=== PATIENT | male | born 1955 | race Caucasian/White ===

== ENCOUNTER 2016-10-11 05:11 | Emergency (ER) | payer OTHER ==
--- NOTE | ~2016-10-11 | ER ---
PATIENT'S NAME: KATELIN GRIGSBY [facility] AGE: 60 Y [address] ROOM: [place] [address] LOCATION: ED ADMIT DATE: 10/11/2016 ER/Outpatient Report DISCHARGE DATE: 10/11/2016 FAMILY PHYSICIAN: Gage García MD ATTENDING PHYSICIAN: Lisa Hart Time of arrival: 0511 hours. Time of my evaluation: 0600 hours. The patient was initially seen by nurse practitioner, Alannah Berman at 0545 hours. CHIEF COMPLAINT: He has pain in his right flank and hips. HISTORY OF PRESENT ILLNESS: The patient is a 60-year-old male, who presents to the emergency department today with a chief complaint of pain in his right hip and back. He reports this started about 2 days prior to arrival on Monday after working. He denies any trauma or fall. 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 He denies any fevers or chills. No nausea or vomiting. No diarrhea or constipation. Denies any headache. He is having some increased urinary frequency. Denies any loss of bowel or bladder. No saddle anesthesias. He did report to the nurse practitioner some numbness and tingling in his legs. He reports no numbness and tingling for me. PAST MEDICAL HISTORY: 1. Hypertension. 2. Dyslipidemia. 3. BPH. PAST SURGICAL HISTORY: 1. Hernia repair. 2. Gallbladder surgery. 3. Kel fundoplication. 4. Varicocelectomy. SOCIAL HISTORY: The patient denies any tobacco, alcohol, or illicit drug use. ALLERGIES: NO KNOWN DRUG ALLERGIES. MEDICATIONS: Please see list. PATIENT'S NAME: KATELIN GRIGSBY [facility] AGE: 60 Y [address] ROOM: [place] [address] LOCATION: ED ADMIT DATE: 10/11/2016 ER/Outpatient Report DISCHARGE DATE: 10/11/2016 FAMILY PHYSICIAN: Gage García MD ATTENDING PHYSICIAN: Lisa Hart REVIEW OF SYSTEMS: All systems are reviewed by myself and negative with the exception of those discussed in HPI and past medical history. PHYSICAL EXAMINATION: VITAL SIGNS: Weight 76 kg. Blood pressure 154/92, pulse 88, respiratory rate 16, temperature 97.7, oxygen saturation 98% on room air. GENERAL: The patient is a 60-year-old male, who appears stated age. He does have a flat affect, in no acute distress. HEENT: Normocephalic and atraumatic. Pupils are equal, round, and reactive to light. Mucous membranes moist. NECK: Supple. There is no nuchal rigidity. CARDIOVASCULAR: Regular rate and rhythm. No murmurs, rubs, or gallops. LUNGS: Clear to auscultation bilaterally. No wheezes, rales, or rhonchi. ABDOMEN: Soft, nontender, and nondistended. No rebound, rigidity, or guarding. MUSCULOSKELETAL: The patient does have some tenderness to palpation. Left paraspinal musculature on the right. NEUROLOGICAL: GCS of 15. He does have 3/4 reflexes at patella bilaterally, 2/4 Achilles. SKIN: Warm and dry. LABORATORY DATA AND X-RAYS: Urinalysis shows 25 blood, rare epithelials, many bacteria. CBC is unremarkable. Lactate is normal. CMP is unremarkable. LFTs are normal. CRP is less than 0.29. Pro orly is less than 0.05. ESR is normal. CT scan of the abdomen and pelvis is obtained. I have discussed results with the radiologist. CT of the head is negative. CT scan of the lumbar spine shows advanced chronic degenerative changes with some foraminal stenosis. There is a CT scan of the abdomen and pelvis. There is no evidence of stone. There is a large amount of stool. IMPRESSION: 1. Lumbar radiculopathy. 2. Advanced chronic degenerative changes with foraminal stenosis. 3. Large stool. 4. Initial visit. EMERGENCY DEPARTMENT COURSE: The patient brought back to the examination room. Seen and evaluated by myself. IV is established. Laboratory analysis and imaging are obtained as described above. The patient is given 25 mcg of fentanyl. He is given 30 mg of Toradol IV. He is given 1 g of Tylenol p.o. He is also given 60 mg of prednisone p.o. I have discussed results with the patient. I have contacted PATIENT'S NAME: KATELIN GRIGSBY [facility] AGE: 60 Y [address] ROOM: [place] [address] LOCATION: [facility] ADMIT DATE: 10/11/2016 ER/Outpatient Report DISCHARGE DATE: 10/11/2016 FAMILY PHYSICIAN: Gage García MD ATTENDING PHYSICIAN: Lisa Hart Dr., the patient's primary care doctor. He does report that he will see and evaluate the patient today as well for consideration for physical therapy. I have discussed return to care instructions including worsening symptoms or any other concerns, return to the emergency department as soon as possible. The patient is agreeable without further questions at this time. DISPOSITION: The patient is discharged home in good condition. DO ANGIE CASTANEDA/modl /[id number] d: 10/11/16 1213 t: 10/12/16 0844, OUTPATIENT REPORT
[~2016-10-11 05:11] MED LIST: FINASTERIDE5 MG PO; HYGROTON25 MG PO; LIPITOR40 MG PO; NORVASC10 MG PO; TOPROL XL25 MG PO; ZESTRIL30 MG PO
[2016-10-11 06:43] LABS: BASOPHIL # 0.1 K/uL (0.0-0.2); BASOPHIL % 0.9 %; EOSINOPHIL # 0.2 K/uL (0.0-0.5); EOSINOPHIL % 1.8 %; HEMATOCRIT 43.1 % (37.0-53.0); IMMATURE GRANULOCYTE % 0.2 %; LYMPHOCYTE # 1.8 K/uL (0.8-4.0); LYMPHOCYTE % 19.3 %; MCH 31.6 pg (27.0-34.0); MCHC 34.8 gm/dL (32.0-36.5); MCV 90.9 fl (83.0-98.0); MONOCYTE # 0.9 K/uL (0.0-1.0); MONOCYTE % 9.5 %; MPV 10.7 fl (9.4-12.4); NEUTROPHIL # (ANC) 6.3 K/uL (1.4-9.0); NEUTROPHIL % 68.3 %; NRBC % 0 /100WBC (0-0.00); PLATELET COUNT 223 K/uL (150-450); RBC 4.74 M/uL (3.50-5.50); WBC 9.1 K/uL (4.0-11.0)
[2016-10-11 07:05] LABS: BILIRUBIN URINE NEGATIVE (NEGATIVE); BLOOD URINE 25 /UL (NEGATIVE); GLUCOSE URINE NEGATIVE (NEGATIVE); KETONE URINE NEGATIVE (NEGATIVE); LEUKOCYTES URINE NEGATIVE /UL (NEGATIVE); NITRITE URINE NEGATIVE (NEGATIVE); PROTEIN URINE NEGATIVE (NEGATIVE); UROBILINOGEN URINE NORMAL (NORMAL)
[2016-10-11 07:07] LABS: COLOR URINE YELLOW (YELLOW); TURBIDITY URINE CLEAR (CLEAR)
[2016-10-11 07:11] LABS: ALBUMIN 4.4 gm/dL (3.5-5.0); ALK PHOS 75 IU/L (33-138); ALT 21 IU/L (12-78); ANION GAP 13.7 (10.0-19.0); AST 18 IU/L (10-40); BLOOD UREA NITROGEN 17 mg/dL (6-24); CHLORIDE 109 mMol/L (96-110); CO2 22 mMol/L (22-32); ESTIMATED GFR (MDRD EQUATION) > 60; POTASSIUM 3.7 mMol/L (3.7-5.1); SODIUM 141 mMol/L (135-145); TOTAL BILIRUBIN 0.8 mg/dL (0.0-1.5); TOTAL PROTEIN 7.2 g/dL (6.0-8.4)
[2016-10-11 07:13] LABS: WBC URINE NEGATIVE #/HPF (NEGATIVE)
[2016-10-11 07:14] LABS: BACTERIA URINE RARE (NEGATIVE); EPITHELIAL URINE RARE #/HPF (NEGATIVE)
== END 2016-10-11 08:40 | disposition disaster alternative care site (69) ==
LOC: GMED 05:11
PROVIDERS: Emergency Medicine
DX: M48.07 Spinal stenosis, lumbosacral region (principal); M47.897 Other spondylosis, lumbosacral region; I10 Essential (primary) hypertension; E78.5 Hyperlipidemia, unspecified; N40.0 Benign prostatic hyperplasia without lower urinary tract symptoms; Z98.890 Other specified postprocedural states; Z79.82 Long term (current) use of aspirin; Z79.899 Other long term (current) drug therapy; R19.5 Other fecal abnormalities
CPT/HCPCS: J1885; J3010; J7512

== ENCOUNTER 2016-10-26 05:22 | Emergency (ER) | payer OTHER ==
--- NOTE | ~2016-10-26 | ER ---
PATIENT'S NAME: KATELIN GRIGSBY [facility] AGE: 61 Y [address] ROOM: [place] [address] LOCATION: [facility] ADMIT DATE: 10/26/2016 ER/Outpatient Report DISCHARGE DATE: FAMILY PHYSICIAN: Gage García MD ATTENDING PHYSICIAN: Dayanna Kumar HISTORY OF PRESENT ILLNESS: A 61-year-old male, who presents today by ambulance for frequent falls, increased weakness in the lower extremities. He says it is really from like his mid calf down to his ankles that he is weak. He felt weak and his legs sort of buckled and he fell. Denies any other injuries. No headache, no neck pain, no chest pain, no shortness of breath. No nausea or vomiting. No urinary symptoms. No bladder or bowel symptoms. The patient states that he has had some back pain in the past and he has some left-sided back pain at this time that is mild and then the pain shooting down the back of his calves toward his ankles. He reports his pain is a 5/10, but he does not want anything for pain at this time. He was here on October 12, 2016, for something similar, it was like a near-syncopal episode, where he had pretty thorough workup done including CT head, CT of abdomen and pelvis, CT of the lumbar spine, thought it was a pinched nerve and had sent him out on some prednisone and follow up with his primary. The patient denies any slurred speech. No aphasia, no other neuro findings. He says that he has had this problem before and he has had problems with buckling lower extremities since March 2016. He says that when he walks, he has a shuffling gait because he cannot lift his feet off the ground because they are weak. PAST MEDICAL HISTORY: Hypertension and prostate disease. SURGICAL HISTORY: Hernia repair, cholecystectomy, and right index finger. SOCIAL HISTORY: He does not smoke, drink, or use any drugs. He does work here in [employer] at [employer]. MEDICATIONS: Please see med list. ALLERGIES: NONE. REVIEW OF SYSTEMS: Reviewed by me and negative with the exception of those discussed in the HPI. PATIENT'S NAME: KATELIN GRIGSBY [facility] AGE: 61 Y [address] ROOM: [place] [id number] LOCATION: [facility] ADMIT DATE: 10/26/2016 ER/Outpatient Report DISCHARGE DATE: FAMILY PHYSICIAN: Gage García MD ATTENDING PHYSICIAN: Dayanna Kumar PHYSICAL EXAMINATION: VITAL SIGNS: He is 5 feet 7 inches, he weighs 78.1 kg, his heart rate is 82, respiratory rate 18, saturations are 100% on room air. GENERAL: The patient is in no acute distress, alert and interactive. Speaking in full sentences. He does not appear toxic. Alert and oriented x4. HEENT: Pupils are equal and reactive to light. HEART: Heart rate is regular rate and rhythm. No chest wall tenderness. LUNGS: Lung sounds are clear. ABDOMEN: Soft, nontender, nondistended. EXTREMITIES: He does not have any pedal edema. He moves all extremities. He does not have tenderness in bilateral calves. Negative Homans sign. SKIN: Warm, dry, and intact. NEURO: He has no pronator drift. Strength of the upper extremities is 5/5. Intact sensation in bilateral upper extremities. On the lower extremities, he is able to hold both of his legs up against gravity. He has no drift over 10 seconds, but diminished strength against resistance as well. He is able to dorsiflex and plantarflex without any difficulty, though intact bilateral pedal pulses. The cranial nerves 2-12 are otherwise intact. No slurred speech. No aphasia. NIH stroke scale at this time is 0. EMERGENCY ROOM COURSE: We will check some lab work. Then, it was signed out at change of shift to Dr. Hart, pending labs and reassessment. DAYANNA KUMAR MD CAW/modl /[id number] d: 10/26/16646 t: 10/28/161954, OUTPATIENT REPORT
--- NOTE | ~2016-10-26 | ER ---
PATIENT'S NAME: KATELIN GRIGSBY [facility] AGE: 61 Y [address] ROOM: [place] [address] LOCATION: [facility] ADMIT DATE: 10/26/2016 ER/Outpatient Report DISCHARGE DATE: 10/26/2016 FAMILY PHYSICIAN: Gage García MD ATTENDING PHYSICIAN: Tayler Lowe HISTORY OF PRESENT ILLNESS: Katelin Grigsby is a 61-year-old male who presented to Dr. Lowe. Please refer to her dictation. At 6:00 a.m., I assumed care at shift change. The patient was brought in by ambulance with weakness of his lower extremities. He has been seen with back pain and shooting pain down his right leg. Right now, the back pain is better, but today he has had some feeling like his legs are going to "go out from under him." The patient has no problems with bowel or bladder. He has no numbness. PAST MEDICAL HISTORY: Reviewed. ALLERGIES: HE HAS NO ALLERGIES TO MEDICATIONS. CURRENT MEDICATIONS: His medications include: 1. Finasteride. 2. Lisinopril. 3. Amlodipine. 4. Metoprolol. 5. Atorvastatin. 6. Melatonin. 7. Aspirin. 8. Hydralazine. MEDICAL PROBLEMS: 1. BPH. 2. Hypertension. 3. Dyslipidemia. PAST SURGICAL HISTORY: Prior Surgeries: 1. Hernia repair. 2. Cholecystectomy. 3. Kel fundoplication. 4. Right index finger. 5. Varicocelectomy. PATIENT'S NAME: KATELIN GRIGSBY [facility] AGE: 61 Y [address] ROOM: [place] [address] LOCATION: [facility] ADMIT DATE: 10/26/2016 ER/Outpatient Report DISCHARGE DATE: 10/26/2016 FAMILY PHYSICIAN: Gage García MD ATTENDING PHYSICIAN: Tayler Lowe SOCIAL HISTORY: The patient works here at the [employer] in [employer]. He is . Tobacco use; none. Alcohol use; none. Drug use; denies. FAMILY HISTORY: Positive for coronary artery disease. No family history of any neurological diseases. REVIEW OF SYSTEMS: All systems reviewed and negative other than what is noted in the HPI. The patient did follow up with Dr. García from his visit here to the ER on October 11. He followed up in the clinic on October 17 and actually has an appointment tomorrow. He is going to physical therapy three times a week for his back pain which he does think is helping. The patient has increased frequency of urination. PHYSICAL EXAMINATION: VITAL SIGNS: Height 5 feet 7 inches, weight 78.1 kg. Pulse 82, sats 100%, respiratory rate is 18, and blood pressure is 120/72. GENERAL: A 61-year-old male in no acute distress. HEENT: Head; normocephalic and atraumatic. Eyes; pupils equal and reactive to light and accommodation. Extraocular movements intact. LUNGS: Clear to auscultation. HEART: Regular rate and rhythm. ABDOMEN: Soft. SKIN: [place], warm, and dry. NEUROLOGIC: The patient is alert and oriented x4. Cranial nerves 2 through 12 grossly intact. Motor strength is 5/5 throughout. Sensation is intact to light touch. The patient when he walks does have a shuffling gait. He also has some cogwheel rigidity of his upper extremities. LABORATORY DATA AND IMAGING STUDIES: CBC is normal. Sedimentation rate is 10. Procalcitonin is less than 0.05. UA is negative. Renal panel is unremarkable. Glucose 101. Cardiac enzymes are negative. CRP is less than 0.29. Lactate 1.1. IMPRESSION AND PLAN: Weakness. His physical exam does show some shuffling gait, a little bit of cogwheel rigidity. Parkinson disease is in the differential diagnosis. The patient is comfortable going home. He will remain off work today. His will remain off work today and tomorrow. Caution with movements, up with assistance, use a walker if available, and to keep appointment with Dr. García tomorrow. Follow up sooner if any problems, and I advised that he see Neurology and given Dr. Tobar's information to call [facility] specialist and follow up with Neurology. The patient understands and agrees, PATIENT'S NAME: KATELIN GRIGSBY [facility] AGE: 61 Y [address] ROOM: [place], [place] [address] LOCATION: [facility] ADMIT DATE: 10/26/2016 ER/Outpatient Report DISCHARGE DATE: 10/26/2016 FAMILY PHYSICIAN: Gage García MD ATTENDING PHYSICIAN: Tayler Lowe and is comfortable with this plan of care, and all questions have been answered. MD LAUREN ANN/yakelin /[id number] d: 10/26/16 1515 t: 11/01/16 1003, OUTPATIENT REPORT
[~2016-10-26 05:22] MED LIST changes: -ALEVE PM CAPLE1 EACH PO; -ALEVE220 MG PO; -APRESOLINE25 MG PO; -ARICEPT10 MG PO; -ASPIRIN325 MG PO; -BAYER BACK & B1 EACH PO; -BAYER CHILD81 MG PO; -COLACE100 MG PO; -LIDOCAINE1 EACH TOP; -LIORESAL10 MG PO; -MYLANTA (MAG-AL30 ML PO; -NORCO 5-325 TA1 EACH PO; -NUPLAZID17 MG PO; -TYLENOL EXTRA500 MG PO
[2016-10-26 06:09] LABS: BILIRUBIN URINE NEGATIVE (NEGATIVE); BLOOD URINE NEGATIVE /UL (NEGATIVE); GLUCOSE URINE NEGATIVE (NEGATIVE); KETONE URINE NEGATIVE (NEGATIVE); LEUKOCYTES URINE NEGATIVE /UL (NEGATIVE); NITRITE URINE NEGATIVE (NEGATIVE); PROTEIN URINE NEGATIVE (NEGATIVE); UROBILINOGEN URINE NORMAL (NORMAL)
[2016-10-26 06:14] LABS: BASOPHIL % 0.2 %; EOSINOPHIL # 0.2 K/uL (0.0-0.5); EOSINOPHIL % 1.8 %; HEMATOCRIT 41.8 % (37.0-53.0); HEMOGLOBIN 14.2 g/dL (11.0-16.0); IMMATURE GRANULOCYTE # 0.1 K/uL (0.0-0.3); IMMATURE GRANULOCYTE % 0.6 %; LYMPHOCYTE # 1.7 K/uL (0.8-4.0); LYMPHOCYTE % 17.1 %; MCH 31.6 pg (27.0-34.0); MCV 93.1 fl (83.0-98.0); MONOCYTE # 1.1 K/uL (0.0-1.0); MONOCYTE % 10.9 %; NEUTROPHIL # (ANC) 6.8 K/uL (1.4-9.0); NEUTROPHIL % 69.4 %; NRBC % 0 /100WBC (0-0.00); PLATELET COUNT 213 K/uL (150-450); RBC 4.49 M/uL (3.50-5.50); RDW-CV 12.3 % (11.9-14.6); WBC 9.8 K/uL (4.0-11.0)
[2016-10-26 06:25] LABS: COLOR URINE YELLOW (YELLOW); TURBIDITY URINE CLEAR (CLEAR)
[2016-10-26 06:43] LABS: ALBUMIN 3.8 gm/dL (3.5-5.0); ANION GAP 9.9 (10.0-19.0); BLOOD UREA NITROGEN 18 mg/dL (6-24); CALCIUM 8.7 mg/dL (8.5-10.5); CHLORIDE 109 mMol/L (96-110); CO2 28 mMol/L (22-32); CPK 65 IU/L (35-332); ESTIMATED GFR (MDRD EQUATION) > 60; PHOSPHORUS 2.8 mg/dL (2.5-4.9); POTASSIUM 3.9 mMol/L (3.7-5.1); SODIUM 143 mMol/L (135-145)
== END 2016-10-26 08:05 | disposition disaster alternative care site (69) ==
LOC: GACC 05:22
PROVIDERS: Family Medicine
DX: R53.1 Weakness (principal); R26.9 Unspecified abnormalities of gait and mobility; I10 Essential (primary) hypertension; E78.5 Hyperlipidemia, unspecified; N40.0 Benign prostatic hyperplasia without lower urinary tract symptoms; Z90.49 Acquired absence of other specified parts of digestive tract; Z79.82 Long term (current) use of aspirin; Z98.890 Other specified postprocedural states; Z79.899 Other long term (current) drug therapy; W19.XXXA Unspecified fall, initial encounter

== ENCOUNTER → 2016-10-26 | Outpatient (CLI) | payer OTHER ==
[~2016-10-26] MED LIST changes: +ALEVE PM CAPLE1 EACH PO; +ALEVE220 MG PO; +APRESOLINE25 MG PO; +ARICEPT10 MG PO; +ASPIRIN325 MG PO; +BAYER BACK & B1 EACH PO; +BAYER CHILD81 MG PO; +COLACE100 MG PO; +LIDOCAINE1 EACH TOP; +LIORESAL10 MG PO; +MYLANTA (MAG-AL30 ML PO; +NORCO 5-325 TA1 EACH PO; +NUPLAZID17 MG PO; +TYLENOL EXTRA500 MG PO
== END | disposition disaster alternative care site (69) ==
LOC: GAMB 05:50
DX: M79.604 Pain in right leg (principal); M79.605 Pain in left leg; I10 Essential (primary) hypertension; E78.5 Hyperlipidemia, unspecified; M54.9 Dorsalgia, unspecified; R53.1 Weakness; Z79.891 Long term (current) use of opiate analgesic; Z79.899 Other long term (current) drug therapy
CPT/HCPCS: A0425; A0429

== ENCOUNTER 2016-10-30 08:55 | Emergency (ER) | payer OTHER ==
--- NOTE | ~2016-10-30 | ER ---
PATIENT'S NAME: KATELIN GRIGSBY [facility] AGE: 61 Y [address] ROOM: [place] [address] LOCATION: ED ADMIT DATE: 10/30/2016 ER/Outpatient Report DISCHARGE DATE: 10/30/2016 FAMILY PHYSICIAN: Gage García MD ATTENDING PHYSICIAN: Mehdi Medrano TIME OF ARRIVAL: 0855 hours. TIME OF EVALUATION: 0908 hours. CHIEF COMPLAINT: Back pain. HISTORY OF PRESENT ILLNESS: The patient is a 61-year-old male who presents to the emergency department today with chief complaint of back pain. The patient does have a history of back pain. He was seen by myself a few weeks ago. He had undergone CT imaging at that time which did reveal multiple disc bulges on the left. The patient does report pain in the left lower back region. He reports this got worse about an hour prior. He reports he has had some urinary frequency for about 2 days. No blood in his urine. No blood in the stool. No dark tarry stools. No fevers or chills. No nausea or vomiting. The patient has episodes where the pain gets severe and he has to fall down to his knees. He does report it is sharp. It is worse with movement. Currently, moderate in severity. The patient's did give the patient 3 hydrocodone 5/325 about 2 hours prior. He does report he is starting to feel better. He denies any fall. No trauma. No twisting. He has been undergoing physical therapy on Monday, Monday, and Monday for the past couple of weeks, not have helped. He is awaiting to be seen by Dr. Tobar, Neurology. PAST MEDICAL HISTORY: Hypertension, dyslipidemia, and BPH. PAST SURGICAL HISTORY: Hernia, gallbladder, Kel fundoplication, and varicocelectomy. SOCIAL HISTORY: The patient denies any tobacco, alcohol, or illicit drug use. ALLERGIES: NO KNOWN DRUG ALLERGIES. MEDICATIONS: PATIENT'S NAME: KATELIN GRIGSBY [facility] AGE: 61 Y [address] ROOM: [place] [address] LOCATION: ED ADMIT DATE: 10/30/2016 ER/Outpatient Report DISCHARGE DATE: 10/30/2016 FAMILY PHYSICIAN: Gage García MD ATTENDING PHYSICIAN: Mehdi Medrano Please see list. PRIMARY CARE DOCTOR: Gage García MD. REVIEW OF SYSTEMS: All systems are reviewed by myself and negative with the exception of those discussed in the HPI and past medical history. PHYSICAL EXAMINATION: VITAL SIGNS: Weight 170 pounds, blood pressure 151/82, pulse 82, respiratory rate 16, temperature 97.5, and oxygen saturation 95% on room air. GENERAL: The patient is a 61-year-old male, who appears stated age. He does have a flat affect, in no acute distress. HEENT: Normocephalic atraumatic. Pupils are equal, round, and reactive to light. Extraocular motions are intact. Mucous membranes are moist. NECK: Supple. There is no nuchal rigidity. CARDIOVASCULAR: Regular rate and rhythm. No murmurs, rubs, or gallops. LUNGS: Clear to auscultation bilaterally. No wheezes, rales, or rhonchi. ABDOMEN: Soft, nontender, and nondistended. No rebound, rigidity, or guarding. MUSCULOSKELETAL: The patient has tenderness to palpation, left paraspinal musculature. NEUROLOGICAL: GCS 15, 3/4 reflexes bilateral patella, 2/4 on the Achilles. The patient does note multiple extended beats of clonus at the ankle. He has downward going toes bilaterally. He does have sort of a cogwheel type rigidity noted in his left upper extremity. SKIN: Warm and dry. LABORATORY DATA AND X-RAYS: CBC is unremarkable. CMP is normal. LFTs are normal. Urinalysis is unremarkable. CT scans are reviewed. CT scan of the abdomen and pelvis was unremarkable and there was no evidence of nephrolithiasis [address] scan of the C-spine and lumbar spine was reviewed, L1-L2 had mild disc bulge, L2-L3 had moderate disc disease with diffuse disc bulge, and moderate facet ligamentous hypertrophy. There is mild central canal stenosis, moderate right and mild left foraminal stenosis, L3 and L4 had diffuse disc bulge and mild facet ligamentous hypertrophy, mild central canal stenosis, moderate bilateral foraminal stenosis L4-L5 with chronic advanced degeneration of the disc with disc height loss and disc bulging slightly, symmetric to the left, moderate facet hypertrophy, and lateral recess effacement bilaterally, moderate left and right foraminal stenosis, the left L4 nerve is contacted by disc osteophyte in the far lateral region. L5-S1 shows chronic advanced degenerative disc with high loss and broad disc bulge, moderate for bilateral foraminal stenosis. The passing S1 nerve left and right are contacted by disc PATIENT'S NAME: KATELIN GRIGSBY [facility] AGE: 61 Y [address] ROOM: [place] [address] LOCATION: [facility] ADMIT DATE: 10/30/2016 ER/Outpatient Report DISCHARGE DATE: 10/30/2016 FAMILY PHYSICIAN: Gage García MD ATTENDING PHYSICIAN: Mehdi Medrano bulge in particular in the left where S1 could be compressed. IMPRESSION: 1. Lumbar back pain with multiple areas of disc bulge and degenerative disc disease. 2. Initial visit. EMERGENCY DEPARTMENT COURSE: The patient was brought back to the examination room. Seen and evaluated by myself. Laboratory analysis and imaging are obtained. They were reviewed by myself. The patient has just taken 3 hydrocodone 5/325. He is feeling improved pain at this time. He feels very comfortable. I have discussed results with the patient's . I have discussed with the patient that the patient certainly may need an MRI for further evaluation. In regard to the patient's cogwheel-type rigidity and multiple beat clonus, I see no evidence of requiring emergent workup at this time as the patient does have an excellent overall clinical appearance. I have discussed following up closely with both, Dr. Tobar and Dr. García for further evaluation, treatment, and management. I have discussed return to care instructions including worsening symptoms or other concerns to return to the emergency department as soon as possible. The patient is agreeable, the patient's is agreeable without further questions. At time of disposition, the patient discharged home in good condition. DO ANGIE CASTANEDA/yahirl /[id number] d: 10/30/16 1526 t: 11/09/16 0641, OUTPATIENT REPORT
[2016-10-30 09:28] LABS: BILIRUBIN URINE NEGATIVE (NEGATIVE); BLOOD URINE 25 /UL (NEGATIVE); COLOR URINE STRAW (YELLOW); GLUCOSE URINE NEGATIVE (NEGATIVE); KETONE URINE NEGATIVE (NEGATIVE); LEUKOCYTES URINE NEGATIVE /UL (NEGATIVE); NITRITE URINE NEGATIVE (NEGATIVE); PROTEIN URINE NEGATIVE (NEGATIVE); SPEC GRAVITY URINE 1.005 (1.003-1.035); TURBIDITY URINE CLEAR (CLEAR); UROBILINOGEN URINE NORMAL (NORMAL)
[2016-10-30 09:37] LABS: BACTERIA URINE NEGATIVE (NEGATIVE); EPITHELIAL URINE RARE #/HPF (NEGATIVE); RBC URINE NEGATIVE #/HPF (NEGATIVE); WBC URINE NEGATIVE #/HPF (NEGATIVE)
[2016-10-30 09:40] LABS: BASOPHIL # 0.1 K/uL (0.0-0.2); BASOPHIL % 0.7 %; EOSINOPHIL # 0.1 K/uL (0.0-0.5); EOSINOPHIL % 1.1 %; HEMOGLOBIN 14.4 g/dL (11.0-16.0); IMMATURE GRANULOCYTE % 0.4 %; LYMPHOCYTE # 1.3 K/uL (0.8-4.0); LYMPHOCYTE % 15.2 %; MCH 32.5 pg (27.0-34.0); MCHC 35.1 gm/dL (32.0-36.5); MCV 92.6 fl (83.0-98.0); MONOCYTE # 0.6 K/uL (0.0-1.0); MONOCYTE % 7.6 %; NEUTROPHIL # (ANC) 6.3 K/uL (1.4-9.0); NRBC % 0 /100WBC (0-0.00); PLATELET COUNT 199 K/uL (150-450); RBC 4.43 M/uL (3.50-5.50); RDW-CV 11.9 % (11.9-14.6); WBC 8.4 K/uL (4.0-11.0)
[2016-10-30 09:56] LABS: ALBUMIN 4.1 gm/dL (3.5-5.0); ALK PHOS 79 IU/L (33-138); ALT 31 IU/L (12-78); ANION GAP 11.7 (10.0-19.0); AST 19 IU/L (10-40); BLOOD UREA NITROGEN 11 mg/dL (6-24); CALCIUM 8.7 mg/dL (8.5-10.5); CHLORIDE 108 mMol/L (96-110); CO2 24 mMol/L (22-32); ESTIMATED GFR (MDRD EQUATION) > 60; POTASSIUM 3.7 mMol/L (3.7-5.1); SODIUM 140 mMol/L (135-145); TOTAL BILIRUBIN 1.1 mg/dL (0.0-1.5); TOTAL PROTEIN 6.9 g/dL (6.0-8.4)
== END 2016-10-30 11:07 | disposition disaster alternative care site (69) ==
LOC: GMED 08:55
PROVIDERS: Emergency Medicine
DX: M51.37 Other intervertebral disc degeneration, lumbosacral region (principal); I10 Essential (primary) hypertension; E78.5 Hyperlipidemia, unspecified; N40.0 Benign prostatic hyperplasia without lower urinary tract symptoms; Z90.79 Acquired absence of other genital organ(s); Z98.890 Other specified postprocedural states

== ENCOUNTER → 2016-11-21 | Outpatient (CLI) | payer OTHER, MEDICAID ==
[~2016-11-21] MED LIST changes: +ALEVE PM CAPLE1 EACH PO; +ALEVE220 MG PO; +APRESOLINE25 MG PO; +ARICEPT10 MG PO; +ASPIRIN325 MG PO; +BAYER BACK & B1 EACH PO; +BAYER CHILD81 MG PO; +COLACE100 MG PO; +LIDOCAINE1 EACH TOP; +LIORESAL10 MG PO; +MYLANTA (MAG-AL30 ML PO; +NORCO 5-325 TA1 EACH PO; +NUPLAZID17 MG PO; +TYLENOL EXTRA500 MG PO
== END ==
LOC: GRAD 10:06
DX: R29.2 Abnormal reflex (principal); R29.6 Repeated falls

== ENCOUNTER → 2016-11-29 | Outpatient (CLI) | payer OTHER, MEDICAID | END | disposition disaster alternative care site (69) | LOC: GRAD 07:23 | DX: R29.2 Abnormal reflex (principal); M47.892 Other spondylosis, cervical region; R29.6 Repeated falls ==

== ENCOUNTER 2016-12-03 03:13 | Inpatient (IN) | payer OTHER, MEDICAID ==
[~2016-12-03] VITALS: Ht 170.2 cm; Wt 76.6 kg
--- NOTE | ~2016-12-03 | CON ---
PATIENT'S NAME: KATELIN GRIGSBY [facility] AGE: 61 Y [address] ROOM: [facility] [place], [place] [address] [place] [facility] [place] DATE: 12/03/2016 Consultation DISCHARGE DATE: FAMILY PHYSICIAN: RANDAL CASTILLO MD ATTENDING PHYSICIAN: CANDACE VALENTINE DATE OF CONSULTATION: 12/04/2016 I was asked to see this patient in Telemedicine consultation. Consultation was performed with the assistance of nurse practitioner, Dori Dickens, on 12/04/2016. 35 minutes spent reviewing the chart with the nurse practitioner repeating britton portions of history and examination. Plan of care was discussed with the patient and family at the bedside. I agree with the discussed assessment and plan of care. Jay Jay Moreau MD Neurology [employer] [facility] JAY JAY MOREAU MD MNZ/modl /[id number] d: t: 12/04/16 1123, CONSULTATION REPORT
--- NOTE | ~2016-12-03 | ER ---
PATIENT'S NAME: KATELIN GRGISBY [facility] AGE: 61 Y [address] ROOM: [facility] [place], [place] [address] LOCATION: [facility] ADMIT DATE: 12/03/2016 ER/Outpatient Report DISCHARGE DATE: FAMILY PHYSICIAN: RANDAL CASTILLO MD ATTENDING PHYSICIAN: CANDACE VALENTINE HISTORY OF PRESENT ILLNESS: Katelin Grigsby is a 61-year-old male. The patient was evaluated by Dr. Claros prior to my arrival at 6:00 a.m. I assumed care at shift change. History was reviewed with the patient and his . I was to follow up on lab work and CT scanning. Chemistry panel was remarkable for a slightly low potassium of 3.6 and an elevated amylase 140, lipase 688. CBC and sedimentation rate are normal. PT and INR normal. Lactate normal. Procalcitonin normal. Urine drug screen negative. UA negative. EKG unremarkable. CT scan of the abdomen and pelvis: Hazy opacity in the mesentery in the mid abdomen with multiple small mesenteric lymph nodes. These findings can reflect mesenteric panniculitis. IMPRESSION: 1. Generalized weakness with recurrent falls. 2. Mesenteric panniculitis. 3. Elevated pancreatic enzymes. 4. Mild hypokalemia. 5. Dementia. 6. Newly diagnosed Parkinson disease. PLAN: A long discussion was done with and Katelin. She is not able to manage him at home. They have apparently started discussions about maybe some placements, but to this date the patient has not wanted to go anywhere, but they do agree that he has needed increasing cares at home. Care Management will be consulted. The patient will be admitted. Observation per Dr. Valentine, hospitalist. LUPE HEIN MD CAR/modl /[id number] d: 12/04/1621 t: 12/04/16 1513, OUTPATIENT REPORT
--- NOTE | ~2016-12-03 | DS ---
PATIENT'S NAME: KATELIN GRIGSBY [facility] AGE: 61 Y [address] ROOM: [address] [place], [place] [address] LOCATION: [facility] [place] ADMIT DATE: 12/03/2016 Discharge Summary DISCHARGE DATE: 12/08/2016 FAMILY PHYSICIAN: Amara Silva MD ATTENDING PHYSICIAN: Joshua Burgess PRINCIPAL DIAGNOSES: 1. Parkinson's disease as diagnosed by Dr. Tobar of Neurology. 2. Falls. 3. Gait instability. 4. Presumed dementia. 5. Essential hypertension. 6. Benign prostatic hypertrophy. HOSPITAL COURSE: Please reference any of the admitting data to the history and physical dictated by Dr. Burgess. A 61-year-old male who has been having a spastic gait with significant instability and falls who was brought into the emergency room, where there was no acute problems, but was admitted to the hospital for further evaluation and management. He was admitted and started on restorative physical and occupational therapy. He was mildly hypokalemic; so, he was given replacement. He was also given IV fluids for a total of liter. The patient had also elevated lipase, which normalized after IV fluid hydration. Neurology consultation was obtained who in review did not see any acute neurologic changes; however, did recommend for further evaluation of Holter monitor at discharge. The patient did not display any heart rate or rhythm changes noted while hospitalized, but did warrant further investigation. Orthostatic blood pressures were negative, concerns for normal- pressure hydrocephalus; however, review of previous imaging with Radiology did not suggest NPH. The patient was evaluated by physiatry with Dr. Pedraza, because of his spastic gait was started on baclofen, and we did see a great improvement in his gait functionality. He still recommended to utilize a walker at all times. We did ask a speech therapy evaluation for his cognition and it did show increased processing of problem solving tasks that were addressed during consultation. The patient was stable however concerns about home safety by himself. Care Management was involved and looked into different options including a prison care, assisted living, adult daycare, and even home health options. Ultimately, we were able to narrow the needs of the patient down to adult daycare with outpatient therapies. The patient's condition is good at discharge and stable. The patient does warrant further outpatient evaluation with Neurology Services for further workup of his Parkinson's and potential for symptoms associated with normal-pressure hydrocephalus. He certainly most warrant a psychiatric evaluation as well. These all have been established for followup as outpatient. DISCHARGE MEDICATIONS: PATIENT'S NAME: KATELIN [facility] AGE: 61 Y [address] ROOM: [address] [place], [place] [address] LOCATION: [facility] [place] ADMIT DATE: 12/03/2016 Discharge Summary DISCHARGE DATE: 12/08/2016 FAMILY PHYSICIAN: Amara Silva MD ATTENDING PHYSICIAN: Joshua Burgess 1. Atorvastatin 40 mg p.o. every night at bedtime. 2. Finasteride 5 mg p.o. everyday. 3. Amlodipine 10 mg p.o. everyday. 4. Lisinopril 30 mg p.o. everyday. 5. Metoprolol 25 mg p.o. everyday. 6. Lidocaine patch 1 topically as needed to affected area daily. 7. Donepezil 5 mg p.o. everyday until 12/09/2016 then increase to 1 full tablet of 10 mg p.o. everyday thereafter. 8. Nuplazid 34 mg p.o. everyday. 9. Aspirin 81 mg p.o. everyday. 10. Baclofen 10 mg p.o. twice daily. 11. Docusate sodium 100 mg p.o. twice daily as needed. PERTINENT LABORATORY FINDINGS: Most recent cardiac enzymes were negative. ABG was negative. A CBC on 12/03/2016 showed a white blood cell count of 8.0, hemoglobin of 13.1, hematocrit of 38.4, and platelet count of 302. Chemistry panel on 12/04/2016 showed a glucose of 103, a BUN of 8, a creatinine of 0.9, sodium of 140, potassium of 3.9, up from 3.6, chloride of 109, CO2 of 22, calcium of 8.4, anion gap of 12.9, a sed rate of 12, and INR of 1, a urinalysis that was negative for bacteria or nitrites, urine drug screen was negative, alcohol was negative. Lipase was mildly elevated at 688 with repeat lab 293, a CRP was less than 0.29, procalcitonin was negative, TSH was negative. RADIOLOGIC IMAGING: X-ray of the pelvis in the ER showed no acute fracture of the pelvis or the hips. A chest x-ray showed no vascular congestion or acute parenchymal infiltrate. CT of the abdomen and pelvis showed hazy opacity in the mesentery in the midabdomen with multiple small mesenteric lymph nodes, scattered colon diverticula, past Kel fundoplication, and surgically absent gallbladder. CONSULTING PROVIDERS: Saadia Dickens APRN and [facility]. DISCHARGE INSTRUCTIONS: The patient will be discharged to home with his spouse. She plans on utilizing adult daycare on a daily basis while she is at work. The patient will require occupational, physical, and speech therapy for further evaluation and treatment of his spastic and unstable gait. Walkers use is recommended at all times when the patient is up with significant fall precautions. He should undergo cognitive rehabilitation with speech therapy as well. The patient will require follow up with his primary care doctor Dr. Silva in [address] Tobar in 1 to 2 weeks when he returns. Holter monitor was placed at discharge and Dr. Silva will follow up with the results. Total time arranging discharge and coordination of discharge care was 30 PATIENT'S NAME: KATELIN [facility] AGE: 61 Y [address] ROOM: [place] [address] LOCATION: [facility] [place] ADMIT DATE: 12/03/2016 Discharge Summary DISCHARGE DATE: 12/08/2016 FAMILY PHYSICIAN: Amara Silva MD ATTENDING PHYSICIAN: Joshua Burgess. Thank you for allowing us to participate in the care of this patient while at [facility]. ALIVIA JACOBSON APRN, APRN FOR MD JASVIR MELCHOR/yakelin /[id number] CC: MD Mendoza Thakkar MD d: t: 12/09/16 0340, DISCHARGE SUMMARY
--- NOTE | ~2016-12-03 | HP ---
PATIENT'S NAME: AKTELIN GRIGSBY [facility] AGE: 61 Y [address] ROOM: [place] [address] LOCATION: [facility] [place] ADMIT DATE: 12/03/2016 History & Physical DISCHARGE DATE: FAMILY PHYSICIAN: RANDAL CASTILLO MD ATTENDING PHYSICIAN: CANDACE VALENTINE DATE OF SERVICE: CHIEF COMPLAINT: Generalized weakness and recurrent falls. HISTORY OF PRESENT ILLNESS: This is a 61-year-old, male, with a history remarkable for Parkinson disease and dementia, followed by Dr. Tobar in the Neurology Clinic. The story is that patient has been suffering recurrent falls at home. Has fallen about 2 times in the last few months and last time he fell was this morning around 2 a.m. when he was walking to the bathroom at home. He felt that his both legs gave out and that he fell and sat down on the ground. He denies any head trauma or syncope. He was so weak that he could not even get up from the ground, so his tried to help him, but his could not lift him up because he was too heavy for her. The patient was on the ground about 15 minutes, and then they called the ambulance, and the patient was brought here for evaluation. The patient has been having this problem at home for a while and has been going on to outpatient physical therapy every Monday, Monday, and Monday. The patient denies any other symptoms. REVIEW OF SYSTEMS: As mentioned in history of present illness. All other systems were reviewed and they were negative except of those mentioned in history of present illness. PAST MEDICAL HISTORY: 1. Coronary artery disease, did not require stent or CABG. 2. Parkinson disease. 3. Dementia. 4. Hypertension. 5. Hyperlipidemia. 6. Benign prostatic hypertrophy. ALLERGIES: NO KNOWN DRUG ALLERGIES ACCORDING TO THE PATIENT. HOME MEDICATIONS: PATIENT'S NAME: KATELIN GRIGSBY [facility] AGE: 61 Y [address] ROOM: [place] [address] LOCATION: [facility] [place] ADMIT DATE: 12/03/2016 History & Physical DISCHARGE DATE: FAMILY PHYSICIAN: RANDAL CASTILLO MD ATTENDING PHYSICIAN: CANDACE VALENTINE Currently has been reconciled. SOCIAL HISTORY: The patient denies any alcohol or illegal drug or cigarette use. FAMILY HISTORY: Father has hypertension. Mother has heart problem requiring CABG at old age. PAST SURGICAL HISTORY: Cholecystectomy and hiatal hernia repair in the past. PHYSICAL EXAMINATION: VITAL SIGNS: At the time of dictation, temperature 98, heart rate 76, blood pressure 130/75, saturation 99% on room air, and respirations 14. GENERAL APPEARANCE: Alert and oriented x3, in no acute distress. HEENT: Pupils are equally round and reactive to light. Extraocular muscles intact. Anicteric sclerae. Nasal turbinates are normal bilaterally. Moist oral mucosa. NECK: No JVD. CARDIOVASCULAR: Regular rate and rhythm. Normal S1, S2. No murmur, no rubs, no gallops. RESPIRATORY: Clear to auscultation. No rales. No rhonchi. No crackles, no wheezing. ABDOMEN: Soft, nontender, and nondistended. Bowel sounds are present and no mass. EXTREMITIES: No edema in upper or lower extremities. NEUROLOGICAL: Grossly nonfocal. Currently, I do not appreciate any muscle weakness in the lower extremities. SKIN: No ulcer, no rash, no cyanosis. LABORATORY DATA: Venous blood gas shows pH of 7.39, pCO2 of 44, bicarbonate 26.6, and lactic acid 0.8. Troponin less than 0.04. ProBNP 32, CPK 108. White blood cells 8, hemoglobin 13.1, hematocrit 38.4, and platelets 302. Glucose 93, BUN 18, and creatinine 1.2. Sodium 142, potassium 3.6, chloride 111, CO2 of 25, calcium 8.5, total protein 6.3, albumin 3.3, AST 18, ALT 29, alkaline phosphatase 86, total bilirubin 0.4, anion gap 9.6, and globulin 3.0. ESR 12. INR 1.0, PTT 26. Urinalysis: No UTI. Urine drug screen, all negative. Alcohol level, Tylenol level, and aspirin level all within normal limits. Nontoxic level. Alcohol level, normal. GFR 65. CRP less than 0.29. TSH of 0.6. Procalcitonin less than 0.05. IMAGING STUDY: X-ray of the pelvis and chest x-ray are currently pending and CT of the abdomen and pelvis with contrast on admission shows haziness to the mid PATIENT'S NAME: KATELIN GRIGSBY [facility] AGE: 61 Y [address] ROOM: [address] [address] LOCATION: [facility] [place] ADMIT DATE: 12/03/2016 History & Physical DISCHARGE DATE: FAMILY PHYSICIAN: RANDAL CASTILLO MD ATTENDING PHYSICIAN: CANDACE VALENTINE abdominal mesentery with multiple small lymph nodes. This is commonly seen with mesenteric panniculitis. Stool-filled colon with sigmoid diverticulosis. EKG on admission shows sinus rhythm, heart rate of 85 beats per minute with a QTc of 422 milliseconds, QRS of 105 milliseconds, and IA of 182 milliseconds. No acute ischemic changes. ASSESSMENT AND PLAN: 1. Recurrent fall: Physical therapy/occupational therapy. Fall precaution. Aspiration precaution. physiotherapy practice manager consulted for possible placement if the patient's agree. 2. Regarding his mild lipase elevation: Intravenous fluids for hydration and giving clear liquid diet and advance as tolerated to cardiac diet. The patient denies any abdominal pain. 3. Regarding his hypokalemia: Replace with p.o. potassium chloride. 4. Regarding his dementia: Continue home medication. Currently, the medication list is being reconciled. 5. Regarding his hypertension: Medication list has to be reconciled first before it can be addressed. 6. Parkinson disease: Home medication has to be reconciled before it can be addressed. He is a full code. 7. Deep vein thrombosis prophylaxis: The patient will be getting Lovenox subcutaneous. Time spent in care on the day of admission 35 minutes, 10 minutes were spent on chart review, and the remainder of time was spent on interview and physical examination and also counseling. The counseling includes going over the plan of care with the patient and addressing all the questions and concerns that patient had. Further plan will depend on clinical course. CANDACE VALENTINE MD CC/modl /[id number]: [id number] T: 253 HISTORY & PHYSICAL
--- NOTE | ~2016-12-03 | ER ---
PATIENT'S NAME: KATELIN GRIGSBY [facility] AGE: 61 Y [address] ROOM: [address] [place] [id number] LOCATION: [facility] [place] ADMIT DATE: 12/03/2016 ER/Outpatient Report DISCHARGE DATE: FAMILY PHYSICIAN: RANDAL CASTILLO MD ATTENDING PHYSICIAN: CANDACE VALENTINE CHIEF COMPLAINT: Generalized weakness, collapse at home x2, unable to get up and stand or walk by himself. was unable to get the patient up. HISTORY OF PRESENT ILLNESS: This patient is a 61-year-old male, who got up from sleep, needed to drink water. Went to the kitchen, after drinking his water he collapsed, got up, went to the bedroom, collapsed again. At this time, he was unable to get by himself or with help from his . 911 was dispatched. Paramedics brought the patient into the emergency room for evaluation via ambulance. On arrival, the patient is awake, alert, responsive. He complains of hip pain and some mid anterior chest pain. No shortness of breath. No radiation of the pain to the shoulder, neck, jaw, or back. No abdominal pain, nausea, vomiting, diarrhea, or urinary frequency, urgency, or dysuria. No incontinence of urine or stool. No lightheadedness, dizziness, syncope, or near syncope. No trauma. No injury from his collapse. No recent coughs, colds, flus, fever, chills, or sweats. No headache, eyes, ears, nose, throat, neck, or spine pain. No joint or muscle swelling, redness, or pain other than the pelvic hip pain. No skin eruptions or rash. Does have a history of syncope, but no seizure, CVA, TIA. No endocrine problems. No psych issues. HOME MEDICATIONS: See attached medication list. ALLERGIES: NONE. SOCIAL HISTORY: Nonsmoker, nondrinker. SIGNIFICANT PAST MEDICAL HISTORY: Atherosclerotic ischemic heart disease, coronary artery disease, dyslipidemia, dementia, hallucinations, hypertension, benign prostatic hypertrophy, gastroesophageal reflux, syncope, hiatal hernia, positive family history of heart disease. OPERATIONS: Carpal tunnel release, Kel fundoplication, umbilical herniorrhaphy, cholecystectomy, cardiac catheterization, right hand surgery, varicocelectomy. PATIENT'S NAME: KATELIN GRIGSBY [facility] AGE: 61 Y [address] ROOM: [address] [place], [place] [address] LOCATION: [facility] [place] ADMIT DATE: 12/03/2016 ER/Outpatient Report DISCHARGE DATE: FAMILY PHYSICIAN: RANDAL CASTILLO MD ATTENDING PHYSICIAN: CANDACE VALENTINE REVIEW OF SYSTEMS: All systems reviewed by me are negative with exception of those discussed in the history of present illness. PHYSICAL EXAMINATION: VITAL SIGNS: Temperature 97.6 orally, pulse 79 and regular, respirations 16, blood pressure 144/80, O2 saturation on room air is 98%. HEAD: Normocephalic. No abrasion, contusion, laceration, swelling of the scalp or face. EYES: Extraocular muscles intact. PERRL. Sclerae and conjunctivae clear, nonicteric. EARS, NOSE, THROAT: Clear. Mucous membranes moist. NECK: No nuchal rigidity. No thyromegaly or cervical adenopathy. BACK: Negative. LUNGS: Clear. Good air flow. No rales, rhonchi, or wheezes. HEART: Regular. Pulses are palpable. No chest wall or ribcage pain to palpation. ABDOMEN: Soft, nondistended, nontender. Active bowel tones. No organomegaly or abnormal mass palpable. PELVIS: Stable. EXTREMITIES: Moves all 4 extremities. No peripheral edema, cyanosis, or deformity. NEUROLOGIC: Cranial nerves intact. No lateralized sign. The patient is awake, alert, cooperative. Motor and sensory intact. The patient is weak. SKIN: Clear. No skin eruptions or rash. LABORATORY DATA: White count was 8000, 62 segs, 22 lymphs, 12 monos, 2 eos, 1 baso, hemoglobin is 13.1 with hematocrit 38.4, platelet count is 302,000. Sed rate is normal at 12. CMS was normal except for a low potassium of 3.6, elevated chloride of 111, low anion gap of 9.6. Medical blood alcohol was less than 0.01. CRP was less than 0.29. TSH was 0.61. Procalcitonin was less than 0.05. Lactate was 0.80. Amylase and lipase showed an amylase elevation of 140, elevated lipase of 688. CPK was 108. Elfpe-to-gdys cardiac enzymes were normal. Acetaminophen and salicylate serum levels were normal. ProBNP was 32. PTT was 26, pro-time was 10.5 with an INR of 1.0. Venous pH was 7.39. Urine drug screen was negative. Urinalysis showed negative whites, rare reds, 0 to 2 epithelial cells, negative bacteria per high-powered field. IMAGING DATA: Chest x-ray showed no acute infiltrate or changes. Pelvis showed no acute fracture. EKG showed sinus rhythm. No acute ST elevation, ischemic change, or arrhythmia. In view of the elevated amylase and lipase, we did go ahead with a CT scan of the abdomen and pelvis. This test has not been done, PATIENT'S NAME: KATELIN GRIGSBY [facility] AGE: 61 Y [address] ROOM: [place] [address] LOCATION: [facility] [place] ADMIT DATE: 12/03/2016 ER/Outpatient Report DISCHARGE DATE: FAMILY PHYSICIAN: RANDAL CASTILLO MD ATTENDING PHYSICIAN: CANDACE VALENTINE results are pending. IMPRESSION: 1. Generalized weakness with the patient collapsing two times at home. After the second collapse, he was unable to get to his feet stand. Paramedics did bring the patient in for evaluation. 2. Elevated amylase and lipase, etiology uncertain. CT scan of the abdomen and pelvis pending. 3. Hypertension. 4. Coronary artery disease. 5. Dyslipidemia. 6. Hiatal hernia with gastroesophageal reflux. PLAN: Transferred the patient's care over to Dr. Hart at shift change. I asked Dr. Hart to follow up with the results of the CT scan of the abdomen and pelvis, final diagnosis, and treatment plan. Most likely, because of the patient's weakness and inability to stand or walk and inability of the to take care of him to lift and get him on his feet, he probably need to come into the hospital for further evaluation, physical therapy, and evaluation as needed. MD MICHAEL MILLER/modl /[id number] d: 12/03/16 0950 t: 12/08/16 1813, OUTPATIENT REPORT
--- NOTE | ~2016-12-03 | CON ---
PATIENT'S NAME: KATELIN GRIGSBY [facility] AGE: 61 Y [address] ROOM: [place] [address] [place] [facility] [place] DATE: 12/03/2016 Consultation DISCHARGE DATE: FAMILY PHYSICIAN: RANDAL CASTILLO MD ATTENDING PHYSICIAN: CANDACE VALENTINE REFERRING PHYSICIAN: Davie Pedraza MD A consult for LISSETH Reyes. HISTORY OF PRESENT ILLNESS: This pleasant, 61-year-old gentleman is referred for rehab evaluation, admitted on 12/03/2016 with repeated falls, was diagnosed recently with Parkinson, and is on treatment. He has been going before admission to PT on a regular basis on outpatient basis. At the present time, he can ambulate up to 80 feet, but with front-wheeled walker and contact guard assistance to minimum assistance. PHYSICAL EXAMINATION: GENERAL: Alert and oriented x3. VITAL SIGNS: Blood pressure 128/72, temperature 97.7, pulse 70, and respirations 20. He is 5 feet 7 inches tall and weighs 76.6 kg. NEUROLOGIC: He is able to communicate, able to comprehend, able to express without difficulty. Speech is clear and not wet. Cranial nerves 2 through 12 are within normal limits. He can move all 4. Muscle strength throughout is 4 to 4+. Deep tendon reflexes are brisk throughout with increased spasticity. Babinski is equivocal. Sensation is within normal limits. No atrophy, and no fasciculations seen in bilateral upper and lower extremity weakness. He has some incontinence of urine. MEDICATIONS: He is on the following medications: 1. Aricept. 2. Benadryl. 3. Morphine sulfate. PATIENT'S NAME: KATELIN GRIGSBY [facility] AGE: 61 Y [address] ROOM: [place] [address] [place]: [facility] [place] DATE: 12/03/2016 Consultation DISCHARGE DATE: FAMILY PHYSICIAN: RANDAL CASTILLO MD ATTENDING PHYSICIAN: CANDACE VALENTINE 4. Lipitor. 5. Tylenol. 6. NaCl 0.9%. 7. Lopressor. 8. Lisinopril. 9. Proscar. 10. Aspirin. 11. Norvasc. 12. Lovenox. 13. Colace. ASSESSMENT AND PLAN: He has been initiated on PT and OT, which I will continue. In my opinion, he needs to continue on that with front-wheeled walker. I would suggest starting him on a low dose of baclofen, may be 10 mg, p.o. b.i.d. and see how he will react. He should continue on outpatient therapy and stay active. I will follow alongside with you. I did discuss in detail with him and then afterwards with Mr. Renae. I feel that he is going to need to continue to follow on his Parkinson and probably some Lioresal would help him to decrease his spasticity and may be we have more fluent gait, but always with front- wheeled walker. Thank you for this referral. I will follow alongside with you. MD CRISTIANO VOGEL/modl /[id number] d: 12/06/16 1332 t: 12/06/16 1733, CONSULTATION REPORT
[~2016-12-03 03:13] MED LIST changes: -ALEVE PM CAPLE1 EACH PO; -ALEVE220 MG PO; -APRESOLINE25 MG PO; -ARICEPT10 MG PO; -ASPIRIN325 MG PO; -BAYER BACK & B1 EACH PO; -BAYER CHILD81 MG PO; -COLACE100 MG PO; -LIDOCAINE1 EACH TOP; -LIORESAL10 MG PO; -MYLANTA (MAG-AL30 ML PO; -NORCO 5-325 TA1 EACH PO; -NUPLAZID17 MG PO; -TYLENOL EXTRA500 MG PO
[2016-12-03 03:39] LABS: BILIRUBIN URINE NEGATIVE (NEGATIVE); BLOOD URINE 10 /UL (NEGATIVE); COLOR URINE YELLOW (YELLOW); GLUCOSE URINE NEGATIVE (NEGATIVE); KETONE URINE NEGATIVE (NEGATIVE); LEUKOCYTES URINE NEGATIVE /UL (NEGATIVE); NITRITE URINE NEGATIVE (NEGATIVE); PROTEIN URINE NEGATIVE (NEGATIVE); TURBIDITY URINE CLEAR (CLEAR); UROBILINOGEN URINE NORMAL (NORMAL)
[2016-12-03 03:59] LABS: BACTERIA URINE NEGATIVE (NEGATIVE); EPITHELIAL URINE 0-2 #/HPF (NEGATIVE); RBC URINE RARE #/HPF (NEGATIVE); WBC URINE NEGATIVE #/HPF (NEGATIVE)
[2016-12-03 04:09] LABS: COCAINE NEGATIVE (NEGATIVE); OPIATES NEGATIVE (NEGATIVE)
[2016-12-03 04:14] LABS: AMPHETAMINE NEGATIVE (NEGATIVE)
[2016-12-03 04:15] LABS: BARBITURATE NEGATIVE (NEGATIVE)
[2016-12-03 04:16] LABS: BICARBONATE 26.6 mmol/L (18.0-23.0); PCO2 44 mmHg (35-45)
[2016-12-03 04:19] LABS: PO2 42 mmHg (80-90)
[2016-12-03 04:22] LABS: BASOPHIL # 0.1 K/uL (0.0-0.2); BASOPHIL % 1.1 %; EOSINOPHIL # 0.2 K/uL (0.0-0.5); EOSINOPHIL % 2.1 %; HEMATOCRIT 38.4 % (37.0-53.0); HEMOGLOBIN 13.1 g/dL (11.0-16.0); IMMATURE GRANULOCYTE % 0.5 %; LYMPHOCYTE # 1.8 K/uL (0.8-4.0); LYMPHOCYTE % 22.3 %; MCH 32.1 pg (27.0-34.0); MCHC 34.1 gm/dL (32.0-36.5); MCV 94.1 fl (83.0-98.0); MONOCYTE # 0.9 K/uL (0.0-1.0); MONOCYTE % 11.8 %; MPV 9.7 fl (9.4-12.4); NEUTROPHIL % 62.2 %; NRBC % 0 /100WBC (0-0.00); RBC 4.08 M/uL (3.50-5.50); RDW-CV 12.3 % (11.9-14.6)
[2016-12-03 04:23] LABS: PLATELET COUNT 302 K/uL (150-450)
[2016-12-03 04:31] LABS: PROTIME 10.5 SECONDS (9.8-11.4)
[2016-12-03 04:42] LABS: ALBUMIN 3.3 gm/dL (3.5-5.0); ALK PHOS 86 IU/L (33-138); ALT 29 IU/L (12-78); ANION GAP 9.6 (10.0-19.0); AST 18 IU/L (10-40); BLOOD UREA NITROGEN 18 mg/dL (6-24); CALCIUM 8.5 mg/dL (8.5-10.5); CHLORIDE 111 mMol/L (96-110); CO2 25 mMol/L (22-32); CREATININE 1.2 mg/dL (0.6-1.3); POTASSIUM 3.6 mMol/L (3.7-5.1); SODIUM 142 mMol/L (135-145); TOTAL PROTEIN 6.3 g/dL (6.0-8.4)
[2016-12-03 04:43] LABS: TOTAL BILIRUBIN 0.4 mg/dL (0.0-1.5)
[2016-12-03 04:44] LABS: CPK 108 IU/L (35-332)
--- NOTE | 2016-12-03 10:00 | NUR ---
A 61 yr old male admitted from ER for increase weakness, pancreatitis and mesenteric peniculitis. Patient is alert and oriented but forgetful at times. No known allergies. Hx of HTN, heart cath, BPH, dementia and high cholesterol. Patient and state that he has been falling at home and fell early this morning. Patient states having numbness and tingling to bilateral lower legs and feet.
[2016-12-03] MEDS ORDERED: LIDOCAINE1 EACH TOP (14:25)
[2016-12-03] MEDS ORDERED: ARICEPT10 MG PO (14:26)
[2016-12-03] MEDS ORDERED: NUPLAZID17 MG PO (14:27)
[2016-12-03] MEDS ORDERED: BAYER BACK & B1 EACH PO (14:28)
[2016-12-03] MEDS ORDERED: BAYER CHILD81 MG PO (14:29)
--- NOTE | 2016-12-03 19:32 | NUR ---
Significant Event: Patient admitted at 0930 this morning for weakness and pancreatitis. Amylase and lipase elevated and patient rating abdominal pain at a 3/10. Denies nausea. Patient recently diagnosed with dementia and started on Aricept. Patient is alert and oriented but forgetful at times. Patient on a hi/low bed with bed alarm on at all times. Up in the recliner this morning and transfers with 1 assist and use of a walker and gait belt. Tolerating clear liquids and will advance to a cardiac diet in the morning. IV to his R) AC and received NS 1 liter IV over 1 hr, then the second liter is infusing at 150 ml/hr for 1 liter, and the third and final liter will be at 75 ml/hr for 1 liter. Patient c/o L) leg cramp this afternoon and received Tylenol 650 mg at 1818. Follow up:
[2016-12-04 06:34] LABS: ANION GAP 12.9 (10.0-19.0); CALCIUM 8.4 mg/dL (8.5-10.5); CHLORIDE 109 mMol/L (96-110); CO2 22 mMol/L (22-32); CPK 151 IU/L (35-332); CREATININE 0.9 mg/dL (0.6-1.3); POTASSIUM 3.9 mMol/L (3.7-5.1); SODIUM 140 mMol/L (135-145)
[2016-12-04 06:41] LABS: BLOOD UREA NITROGEN 8 mg/dL (6-24)
--- NOTE | 2016-12-04 06:46 | NUR ---
SIGNIFICANT EVENT: Pt admitted on 12/03/16 for fall at home, increased weakness and increased n/t to bilateral feet. Pt did not sleep well this shift, longest sleep time was about 20 minutes. Bed alarms at all times. Very confused - frequent reorientation to location, etc. C/O back pain throughout shift. Aqua KPad used to back intermittently with little relief and pt would state it was making him too warm. 1mg morphine given at 0535. 650 acetaminophen given at 0030 (can have q6h). Voids per urinal. VSS on RA. Cardiac diet.
--- NOTE | 2016-12-04 14:52 | NUR ---
Significant Event: Pt c/o generalized discomfort, received tyelnol x2 with some relief. Impulsive at times. Confused. Family here intermittently. Up with 1 assist, unsteady, showered. Neuro consult, orthostatic BP done and WNL. Bed alarm on at all times. Follow up:
--- NOTE | 2016-12-05 04:11 | NUR ---
SIGNIFICANT EVENT: Pt slept most of shift. Confused when awake but follows commands. VSS on RA. Cardiac diet. Hi-low bed d/t ultra high fall risk - admitted from fall at home, alarms! PIV to R)FA is SL. Benadryl given at HS per order. Cooperative with cares. Pt having visual hallucinations latter part of shift. 1 to 2 PA with walker, voids per urinal. Cooperative with cares.
--- NOTE | 2016-12-05 15:27 | NUR ---
Significant Event: Pt c/o generalized pain early this am, good relief with Tylenol. Up with 1 assist. Has been more oriented this shift. Bed alarm on for safety. Occasionally inc of urine. Follow up:
--- NOTE | 2016-12-05 15:30 | NUR ---
Introduced self/role to patient and his . is at a loss about what to do with patient - SNF, [facility], [facility]. Talked thru those options. Will make referral to [facility] with [facility] regarding Medicaid/Disability. Dr Harper may order another test, still unclear about what is wrong with patient. Did have a psych consult outpatient made for December 28. Will look into the possibility of GIRP. will be back tomorrow around 1500. Added my name to his marker board, will continue to follow. 1610 Made referral to [facility].
--- NOTE | 2016-12-06 05:06 | NUR ---
Significant Event: Pt up to chair beginning of shift. Alert and oriented to self and knows he's in the hospital. Forgetful and confused words at times. Pleasant and cooperative with cares. Uses urinal at times and has had 2 episodes of incont urine this shift. Gave benadryl at HS per 's request has slept well this shift. VSS, afebrile. Coccyx slightly red, iris cushion placed in chair, attempted to turn pt throughout the night and would find pillow on floor shortly after repositioning. HI/Low bed and alarms at all times. Follow up: Placement.
--- NOTE | 2016-12-06 11:30 | NUR ---
Geovanna with [facility] notified me that patients insurance approved thru 12-07 and update due 12-08. Spoke with Kana Issa, GIRP is a no. 1340 Spoke to [facility] about checking benefits, faxed info. [phone] [facility] called and the fax isn't working so gave me a different fax. Faxed to new number. [phone] followed up with patient, his and their paster present. Updated on [facility]. Thinking seriously about [facility] adult [facility] which is only $55 a day compared to prison costs of $250 a day. She is aware of [facility] also. Will followup tomorrow regarding [facility] coverage. Let her know insurance approved stay here thru tomorrow. She will be back around 1500 tomorrow.
--- NOTE | 2016-12-06 16:48 | NUR ---
Significant Event:A/O X 2, disoriented to time. Reports he understands the plan for discharge, but makes confused statements to his about medication updates. SBP 110's to 120's. HR 60's and 70's. Lungs clear O2 sats 985 on room air. Ambluates in the edwards with SBA, gait belt and walker. Brad LE's weak, when asking to raise legs. Showered and shampooed today with 1 assist. Incontinent of urine at times, wears a depend garment. Red area on right buttock/coccyx and R) groin, moisture barrier applied to both areas with turns and john cares. Started on Baclofen. Kana Renae, talked to patient about discharge plans to NH or other facility. Pt. is agreeable. Follow up:
--- NOTE | 2016-12-07 01:34 | NUR ---
SIGNIFICANT EVENT: VSS. IV R)AC SL. RESTLESS THROUGH THE SHIFT. CONFUSED AT TIMES BUT REORIENTS. NO COMPLAIN OF PAIN. UP WITH 1 ASSIST, WALKER AND GAIT BELT. POSSIBLE PLACEMENT?
--- NOTE | 2016-12-07 12:30 | NUR ---
Kana Issa updated him of my plans with [facility] and Adult Daycare recommendations. 1240 Left a message for [facility] asking if they have figured out benefits. 1330 Mo with [facility] called back, still figuring out benefits. I asked for them to check if patient has to be home bound or not due to adult day care. She will check. 1530 Meet with patient and . She is going to run to [employer] to complete application for daycare, assessment required. She is also working with Natali Flores at [facility]. They have a walker. Tentative plan for discharge tomorrow after 1500.
--- NOTE | 2016-12-07 12:36 | NUR ---
PT SCREENED D/T LOS. EST NEEDS: 4012-0092 KCALS, 76-90 GM PROTEIN, 1 ML/KCAL FLUIDS. INTAKE 75-100%. NO NUTRITION-RELATED DIAGNOSIS IDENTIFIED. WILL ASSIST NEEDED.
--- NOTE | 2016-12-07 15:57 | NUR ---
Significant event: Restless at times and wanting to walk, move things around on bedside table, stand at bedside or in front of chair. Oriented times 3. At times is forgetful and sometimes difficult to understand what he is trying to explain. Has had 2 large BM today. Voiding good, appetite good and drinking good. Ambulates with walker, gait belt and 1 assist gait unsteady at times and needs reminding to be in front of chair before sitting. Follow-up: Possible dismissal tomorrow.
--- NOTE | 2016-12-08 05:24 | NUR ---
Significant Event: Assumed pt cares around 0000. Pt has rested well throughout the night. Denied any nausea or pain. Pt pulled IV out, order obtained to leave IV out as pt is possibly discharging today. Incontinent at times. Up with assistance and use of walker and gait belt. Gait unsteady. Needs alarms on at all times. VSS. Follow up:
--- NOTE | 2016-12-08 10:30 | NUR ---
Genny with [facility] left a message that patient must be home bound inorder to receive services. [address] [facility] and she called back. Recommending outpatient speech, will put that order on the chart. 1540 Followed up with patient and his . Has a meeting with Drea Esqueda tomorrow after work tomorrow. Natali Flores with [facility] meeting with them Monday. Has medical appointments Monday and 's mom will take. No other identified needs. Will be going home with a halter monitor. They had no further questions.
[2016-12-08] MEDS ORDERED: ASPIRIN325 MG PO (12:38)
[2016-12-08] MEDS ORDERED: APRESOLINE25 MG PO (12:38)
[2016-12-08] MEDS ORDERED: TYLENOL EXTRA500 MG PO (12:38)
[2016-12-08] MEDS ORDERED: ALEVE PM CAPLE1 EACH PO (12:38)
[2016-12-08] MEDS ORDERED: ALEVE220 MG PO (12:38)
[2016-12-08] MEDS ORDERED: LIORESAL10 MG PO (12:47)
[2016-12-08] MEDS ORDERED: COLACE100 MG PO (12:47)
--- NOTE | 2016-12-08 16:21 | NUR ---
Discharge Summary: Pt is alert and oriented. Forgetful. Has been ambulating with walker today, much better than has. No IV access. VSS. on room air. Had shower today. Discharge paper work discussed with pt and . Copies of education on Baclofen, Docusate stool softner, parkinson's, and home safety, preventing falls given to pt and . Copies of hospital dismissal instructions with follow up appts given to . Prescriptions given to for meds and therapy. and patient verbalized understanding. Pt was fitting for a holter monitor and will follow up with the dr next week. Cooperative with cares. Wheeled to north front doors and assisted into pickup.
== END 2016-12-08 16:15 | disposition disaster alternative care site (69) | DRG 57 ==
LOC: GACC 03:13 → GMSU 08:18
PROVIDERS: Emergency Medicine; ADMIT Internal Medicine
DX: G20 Parkinson's disease (principal); F02.80 Dementia in other diseases classified elsewhere, unspecified severity, without behavioral disturbance, psychotic disturbance, mood disturbance, and anxiety; I10 Essential (primary) hypertension; I25.10 Atherosclerotic heart disease of native coronary artery without angina pectoris; G47.00 Insomnia, unspecified; R29.6 Repeated falls; R59.0 Localized enlarged lymph nodes; E78.5 Hyperlipidemia, unspecified; N40.1 Benign prostatic hyperplasia with lower urinary tract symptoms; N39.498 Other specified urinary incontinence; Z79.82 Long term (current) use of aspirin
CPT/HCPCS: G0480; J1650; J2270; J7030

== ENCOUNTER → 2016-12-03 | Outpatient (CLI) | payer OTHER, MEDICAID | END | disposition disaster alternative care site (69) | LOC: GAMB 02:59 | DX: R53.1 Weakness (principal); I10 Essential (primary) hypertension; E78.5 Hyperlipidemia, unspecified; Z79.891 Long term (current) use of opiate analgesic; Z79.899 Other long term (current) drug therapy | CPT/HCPCS: A0425; A0429 ==

== ENCOUNTER 2016-12-16 09:17 | Emergency (ER) | payer OTHER, MEDICAID ==
--- NOTE | ~2016-12-16 | ER ---
PATIENT'S NAME: KATELIN GRIGSBY [facility] AGE: 61 Y [address] ROOM: [place], [place] [address] LOCATION: [facility] ADMIT DATE: 12/16/2016 ER/Outpatient Report DISCHARGE DATE: 12/16/2016 FAMILY PHYSICIAN: Amara Silva MD ATTENDING PHYSICIAN: Lisa Hart Time of Arrival: 0917 hours. Time Seen: 0918 hours. IDENTIFICATION: A 61-year-old male. CHIEF COMPLAINT: Illness. HISTORY OF PRESENT ILLNESS: The patient is a 61-year-old male who has been here several times with weakness, gait instability, and falls. He was hospitalized December 03 to December 08. He also has dementia. He was just diagnosed per Dr. Tobar in his recent hospitalization with Parkinson's. He was at home alone while his was at work today. After this last hospital stay, he was discharged on the , they were, according to care management note, supposed to be meeting with Drea Esqueda the following day, that did not happen according to his because he has to have a diagnosis of dementia or Alzheimer's, and I did inform her that he has a diagnosis of dementia, but she has not pursued that at this time. She has been dealing with Kelly Welch with [facility] to get some help in the home, which again has not happened, he is at this point rather than having daycare or having help at home, he has been left at home while she is at work. Today, she states he was just sitting in his chair at home when he suddenly felt dizzy and called 911. On arrival here to the emergency room, he has no vision problems, still feeling somewhat dizzy, but that quickly resolved. He did not pass out, no other concerns or pain today, nothing else has changed. ALLERGIES: NO KNOWN DRUG ALLERGIES. CURRENT MEDICATIONS: 1. Atorvastatin 40 mg at h.s. 2. Finasteride 5 mg daily. 3. Amlodipine 10 mg daily. 4. Lisinopril 30 mg daily. 5. Metoprolol 25 mg daily. 6. Lidocaine patch as needed. 7. Donepezil 5 mg daily. PATIENT'S NAME: KATELIN GRIGSBY [facility] AGE: 61 Y [address] ROOM: [place], [place] [address] LOCATION: ED ADMIT DATE: 12/16/2016 ER/Outpatient Report DISCHARGE DATE: 12/16/2016 FAMILY PHYSICIAN: Amara Silva MD ATTENDING PHYSICIAN: Lisa Hart 8. Nuplazid 34 mg daily. 9. Aspirin 81 mg daily. 10. Baclofen 10 mg t.i.d. 11. Docusate 100 mg as needed. MEDICAL PROBLEMS: Recent diagnosis of Parkinson's per Dr. Tobar, coronary artery disease, dementia, hypertension, hyperlipidemia, BPH, and gait instability. PRIOR SURGERIES: Cholecystectomy and hiatal hernia repair. FAMILY HISTORY: Father with hypertension, mother with heart disease later in life. SOCIAL HISTORY: The patient has worked in [employer] here at [facility]. He is . They live in [place]. Tobacco use, denies. Alcohol use, denies. Drug use, denies. REVIEW OF SYSTEMS: All systems reviewed and negative other than what is noted in the HPI. PHYSICAL EXAMINATION: VITAL SIGNS: Height 5 feet 7 inches and weight 79.3 kg. Blood pressure 141/86, pulse 74, respirations 16, temperature 97.4, and saturations 98%. No orthostatic hypotension. Blood pressures lying 129/79, heart rate 61; standing 126/80, heart rate 78. GENERAL: Pleasant male, in no acute distress. HEENT: Head: Normocephalic, atraumatic. Ears: TMs translucent, both ears. Eyes: Pupils equal and reactive to light and accommodation. Extraocular movements intact. Nose: Mucosa pink. No lesions. Mouth: No lesions. Pharynx benign. NECK: Supple. No lymphadenopathy. No nuchal rigidity. No tenderness to palpation of the cervical spine. LUNGS: Clear to auscultation. HEART: Regular rate and rhythm. ABDOMEN: Bowel sounds present. Soft, nondistended, nontender. SKIN: [place], warm, and dry. No lesions or rashes noted. NEURO: The patient is alert and oriented x3. Cranial nerves 2 through 12 grossly intact. Motor strength 5/5 throughout. Sensation is intact to light touch. The patient has some slow speech which is normal for him. DIAGNOSTIC DATA: EKG, normal sinus rhythm at 60 beats per minute. No acute ST elevation or PATIENT'S NAME: CALISTA KATELIN A [facility] AGE: 61 Y [address] ROOM: [place], [place] [address] LOCATION: [facility] ADMIT DATE: 12/16/2016 ER/Outpatient Report DISCHARGE DATE: 12/16/2016 FAMILY PHYSICIAN: Amara Silva MD ATTENDING PHYSICIAN: Lisa Hart depression. UA is negative. CBC normal. INR 0.96. Chemistry panel all within normal limits. Troponin I less than 0.040. Did get a note faxed over from Dr. Tobar's office dated December 12. Other active problems on his note included bipolar disorder with psychotic features and psychomotor retardation. He did have a cervical MRI, normal spinal cord, no evidence of demyelination, ljzq-qk-yuxykutt degenerative changes, no cord impingement. MRI of the brain, mild chronic white matter changes, no evidence of demyelinating disease or hydrocephalus, and his assessment at that time, his diagnosis was primary lateral sclerosis, delusional thoughts, dementia, and psychomotor retardation. An EMG for all 4 extremities was ordered. Baclofen was increased to 3 times a day. The nerve conduction tests were ordered. Currently working on filling out disability forms as Dr. Tobar did not feel that he would be able to return to work based on his progressive disability. IMPRESSION: 1. Parkinson features. 2. Frequent falls. 3. 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 4. Dementia. PLAN: I talked at length with his as well as Care Management. Care Management evaluated the patient in the emergency room and spoke with adult day care as well as Kelly at [facility]. will go to the aging office on Monday if she needs help with continued disability application. Elizabeth with [facility] assisted with Medicaid disability application today. The niece called [facility] to see what fci facility benefits were available. I spoke with Dr. Pedraza, he did not meet criteria for inpatient rehab and there were no beds, but he did recommend fci. Tier 1 SNF facilities will be contacted per Care Management. She did fax referral to [facility] for [place] in [place] and [facility] will evaluate the patient on Monday. The patient's will be home with him until then and then her mother will stay with him on Monday and so he was discharged home with this plan of care and all were in agreement. MD LAUREN ANN/yakelin PATIENT'S NAME: KATELIN GRIGSBY [facility] AGE: 61 Y [address] ROOM: [place] [address] LOCATION: [facility] ADMIT DATE: 12/16/2016 ER/Outpatient Report DISCHARGE DATE: 12/16/2016 FAMILY PHYSICIAN: Amara Silva MD ATTENDING PHYSICIAN: Lisa Hart /[id number] d: 12/16/162113 t: 12/17/16 1244, OUTPATIENT REPORT
[~2016-12-16 09:17] MED LIST changes: -MYLANTA (MAG-AL30 ML PO; -NORCO 5-325 TA1 EACH PO
[2016-12-16 09:47] LABS: BASOPHIL # 0.1 K/uL (0.0-0.2); BASOPHIL % 0.9 %; EOSINOPHIL # 0.2 K/uL (0.0-0.5); EOSINOPHIL % 2.6 %; HEMATOCRIT 40.1 % (37.0-53.0); HEMOGLOBIN 13.4 g/dL (11.0-16.0); IMMATURE GRANULOCYTE % 0.4 %; LYMPHOCYTE # 1.5 K/uL (0.8-4.0); LYMPHOCYTE % 18.8 %; MCH 31.3 pg (27.0-34.0); MCHC 33.4 gm/dL (32.0-36.5); MCV 93.7 fl (83.0-98.0); MONOCYTE # 0.8 K/uL (0.0-1.0); MONOCYTE % 9.7 %; MPV 9.9 fl (9.4-12.4); NEUTROPHIL # (ANC) 5.2 K/uL (1.4-9.0); NEUTROPHIL % 67.6 %; NRBC % 0 /100WBC (0-0.00); PLATELET COUNT 256 K/uL (150-450); RBC 4.28 M/uL (3.50-5.50); RDW-CV 12.3 % (11.9-14.6); WBC 7.7 K/uL (4.0-11.0)
[2016-12-16 09:57] LABS: INR - (THERAPEUTIC) 0.96 (0.92-1.07); PROTIME 10.1 SECONDS (9.8-11.4); PTT 25 SECONDS (25-32)
[2016-12-16 10:07] LABS: ALBUMIN 3.7 gm/dL (3.5-5.0); ALK PHOS 99 IU/L (33-138); ALT 30 IU/L (12-78); ANION GAP 12.3 (10.0-19.0); AST 18 IU/L (10-40); BLOOD UREA NITROGEN 10 mg/dL (6-24); CALCIUM 8.8 mg/dL (8.5-10.5); CHLORIDE 109 mMol/L (96-110); CO2 27 mMol/L (22-32); POTASSIUM 4.3 mMol/L (3.7-5.1); SODIUM 144 mMol/L (135-145); TOTAL BILIRUBIN 0.3 mg/dL (0.0-1.5); TOTAL PROTEIN 6.8 g/dL (6.0-8.4)
--- NOTE | 2016-12-16 10:35 | NUR ---
Call from ER regarding patient and needs to be seen for discharge planning. 1050 Called Jacqueline at [facility], Holli is on vacation until the Lynda is out today. She believes they have to have a dementia diagnoses to participates in this program. Called [facility] and spoke to patient's doctor's nurse Emerson. Patient has a diagnoses of dementia with delusional thoughts, bi polar and psychomotor retardation. They will call Adult daycare to get things moving. 1105 Emerson called back and Lynda will assess patient at his home Monday. Spoke to Natali Flores #[phone] with [facility]. She meet with them last Monday and she is assisting with the disability application. can come to the Aging office Monday if she needs help but needs to make an appointment today. Called Elizabeth with [facility], she will be done in 15 minutes to help with Medicaid/Disability application. 1130 Called [employer] to see what SNF benefits were #[phone]. Out of pocket of $3000 has been meet. 10% co-pays for in-network. Tier one in network are [facility], [facility] in [place] and [facility]. 1140 Shared with patient, and [id number] insurance info. Would like me to pursue [facility]. Elizabeth here to see patient. [address] Hart. 1155 Called [facility] and made referral for [facility]. Faxed referral. 1220 Gave patients contact info for [facility] and [facility]. 1410 Carla called from [facility] and can't proceed with pre-auth because therapy notes can only be a day or two old. 1510 Called [facility] for possible placements. [facility] don't have a bed for a potential Medicaid. [facility] would have their Respite room open. 1515 Called patients to update. She said patient was at Physical Therapy just yesterday so maybe can try to fax that to [facility]. 1520 Called Therapy and spoke to Lori to see about getting therapy evals. 1525 Got therapy evals, faxed to [facility].
[2016-12-16 11:09] LABS: BILIRUBIN URINE NEGATIVE (NEGATIVE); BLOOD URINE NEGATIVE /UL (NEGATIVE); COLOR URINE STRAW (YELLOW); GLUCOSE URINE NEGATIVE (NEGATIVE); KETONE URINE NEGATIVE (NEGATIVE); LEUKOCYTES URINE NEGATIVE /UL (NEGATIVE); NITRITE URINE NEGATIVE (NEGATIVE); PROTEIN URINE NEGATIVE (NEGATIVE); TURBIDITY URINE CLEAR (CLEAR); UROBILINOGEN URINE NORMAL (NORMAL)
== END 2016-12-16 12:55 | disposition disaster alternative care site (69) ==
LOC: GMED 09:17
PROVIDERS: Family Medicine
DX: G20 Parkinson's disease (principal); F02.80 Dementia in other diseases classified elsewhere, unspecified severity, without behavioral disturbance, psychotic disturbance, mood disturbance, and anxiety; G12.29 Other motor neuron disease; R29.6 Repeated falls; I10 Essential (primary) hypertension; I25.10 Atherosclerotic heart disease of native coronary artery without angina pectoris; E78.5 Hyperlipidemia, unspecified; R26.9 Unspecified abnormalities of gait and mobility; Z90.49 Acquired absence of other specified parts of digestive tract; Z79.82 Long term (current) use of aspirin; Z79.899 Other long term (current) drug therapy

== ENCOUNTER → 2016-12-16 | Outpatient (CLI) | payer OTHER, MEDICAID ==
[~2016-12-16] MED LIST changes: +ALEVE PM CAPLE1 EACH PO; +ALEVE220 MG PO; +APRESOLINE25 MG PO; +ARICEPT10 MG PO; +ASPIRIN325 MG PO; +BAYER BACK & B1 EACH PO; +BAYER CHILD81 MG PO; +COLACE100 MG PO; +LIDOCAINE1 EACH TOP; +LIORESAL10 MG PO; +MYLANTA (MAG-AL30 ML PO; +NORCO 5-325 TA1 EACH PO; +NUPLAZID17 MG PO; +TYLENOL EXTRA500 MG PO
== END | disposition disaster alternative care site (69) ==
LOC: GAMB 09:02
DX: R42 Dizziness and giddiness (principal); H53.9 Unspecified visual disturbance; F03.90 Unspecified dementia, unspecified severity, without behavioral disturbance, psychotic disturbance, mood disturbance, and anxiety; I10 Essential (primary) hypertension; E78.5 Hyperlipidemia, unspecified; M54.9 Dorsalgia, unspecified; R50.9 Fever, unspecified; Z79.1 Long term (current) use of non-steroidal anti-inflammatories (NSAID); Z79.891 Long term (current) use of opiate analgesic; Z79.899 Other long term (current) drug therapy
CPT/HCPCS: A0425; A0429

== ENCOUNTER 2016-12-18 05:56 | Inpatient (IN) | payer OTHER, MEDICAID ==
[~2016-12-18] VITALS: Ht 170.2 cm; Wt 75.3 kg
--- NOTE | ~2016-12-18 | DS ---
PATIENT'S NAME: KATELIN GRIGSBY [facility] AGE: 61 Y [address] ROOM: [address] [place], [place] [address] LOCATION: [facility] ADMIT DATE: 12/18/2016 Discharge Summary DISCHARGE DATE: 12/26/2016 FAMILY PHYSICIAN: Amara Silva MD ATTENDING PHYSICIAN: Jill Harper FINAL DIAGNOSES: 1. Primary lateral sclerosis with parkinsonian features. 2. Dementia. 3. Cognitive delay. 4. Essential hypertension. 5. BPH. CONSULTANTS ON THE CASE: Dr. Tobar with Neurology. HOSPITAL COURSE: Please see details of admission in H and P by Dr. Villareal. Briefly, the patient was admitted after history of multiple falls and weakness. The patient was under the care of Dr. Tobar for workup of primary lateral sclerosis. On admission, Dr. Villareal did recommend and order EMG of all extremities to rule out ALS. The screen was negative. The patient's medications were scrutinized for any possible offenders and resumed as per the orders. The patient worked with therapies for strengthening. He did have spasticity noted and was started on his baclofen with good progress noted. The patient was doing quite well. However, he developed acute onset of chest pain on . The patient's EKG and cardiac enzymes were not significant for any ST- segment changes or elevation of troponin. I did go ahead and get a Lexiscan to rule out any silent ischemia. This also returned without significant abnormalities. On , it was felt that the patient would be stable for transfer to [facility]. He will be cared for by Dr. Keys over there in [place]. DIAGNOSTICS: Chest x-ray on shows cardiac silhouette within normal limits and clear lung alvarado. LABORATORY DATA: On admission, sodium was 143, potassium 3.7, chloride 109, bicarb 27, glucose 94, BUN 12, creatinine 1.3. Initial cardiac enzymes, CPK was 72, CK-MB 1.1, troponin less than 0.04. Mag was 2.4. White blood cell count 6.9, hemoglobin 13.7, hematocrit 38.9, platelets 245. INR 0.9, pro-time 10.3. Lexiscan was clinically negative for ischemia. Perfusion imaging was essentially normal. His overall LV function was 60%. DISCHARGE INSTRUCTIONS: Thepatient is discharged to [facility] under the care of Dr. Keys. His code status is full code. Diet is regular. Weightbearing status is as tolerated with assistance and a front- wheeled walker. Will continue occupational, speech, and physical therapy. The PATIENT'S NAME: KATELIN GRIGSBY [facility] AGE: 61 Y [address] ROOM: [place] [address] LOCATION: [facility] ADMIT DATE: 12/18/2016 Discharge Summary DISCHARGE DATE: 12/26/2016 FAMILY PHYSICIAN: Amara Silva MD ATTENDING PHYSICIAN: Jill Harper patient's rehab potential is fair. Discharge potential is fair. The patient and family aware of risk, condition, and diagnosis on discharge. DISCHARGE MEDICATIONS: 1. Norvasc 10 mg daily. 2. Aspirin 81 mg daily. 3. Lipitor 40 mg at bedtime. 4. Baclofen 10 mg 3 times daily. 5. Aricept 10 mg daily. 6. Finasteride 5 mg daily. 7. Lisinopril 30 mg daily. 8. Tylenol 500 mg every 6 hours as needed for pain. 9. Mylanta 30 mL daily as needed. 10. Colace 100 mg twice daily as needed. 11. Lidocaine patch topically twice daily as needed. We do appreciate participating in this patient's care, and thank you very much for the ability to serve him while hospitalized at [facility]. Time spent coordinating details of discharge was 37 minutes, 35 minutes of which was spent coordinating with consulting physicians, care management, completion of medication reconciliation, education of the patient and family on the above-mentioned diagnoses. LISSETH NIELSEN FOR Rosetta Vazquez MD TIMA/modl /[id number] CC: MD Mendoza Yadav MD d: 12/27/16 0201 t: 12/29/16 0901, DISCHARGE SUMMARY
--- NOTE | ~2016-12-18 | NDGEN ---
PATIENT'S NAME: KATELIN GRIGSBY [facility] AGE: 61 Y [address] ROOM: [address] [place], [place] [address] LOCATION: [facility] ADMIT DATE: 12/18/2016 Neurodiagnostics DISCHARGE DATE: FAMILY PHYSICIAN: RANDAL CASTILLO MD ATTENDING PHYSICIAN: ELA BUENROSTRO PROCEDURE: EMG/NCS of four limbs DATE OF PROCEDURE: 12/19/2016 INDICATIONS: This is a 61-year-old male patient, who has had progressive slowing of his gait over the past, at least 5 months. He is noted on physical exam to have increased tone if not spasticity of all 4 limbs. Working diagnosis is likely PLS or primary lateral sclerosis based upon findings of only upper motor neuron processes such as hyperreflexia of the bilateral upper and lower extremities as well as spasticity. There is no evidence of any weakness of the limbs and no atrophy of the muscles. There are no fasciculations of the muscles. EMG nerve conduction studies were performed to rule out any possibility that this is a process of upper motor neuron and lower motor neuron degeneration such as seen in ALS. Nerve conductions were performed in the bilateral median and ulnar motor and sensory nerves and in the bilateral peroneal and tibial motor nerves and the bilateral median and ulnar and sural nerves. There was normal motor and sensory parameters seen in all the nerves tested. Normal motor onset latencies with amplitudes and normal nerve conduction velocities were recorded. On the sensory studies, there was normal peak onset latencies with normal amplitudes and normal nerve conduction velocities. Needle EMG was performed in all 4 limbs, which showed no evidence of any abnormal spontaneous electrical activity such as positive sharp waves or fibrillation potentials. More specifically in the left upper extremity and left lower extremity, we tested muscle recruitment of the deltoid, biceps, triceps, quadriceps, tibialis anterior, and medial gastroc muscles. There was full recruitment of motor unit action potentials with normal sizes, durations, and phases of all the motor units seen in these muscles. No time was there any abnormal spontaneous electrical activity seen with the patient at rest. There was occasional spontaneous motor units seen due to the patient's increased tone. Cervical paraspinal muscles were also looked at for any evidence of fibrillation potentials and this was within normal limits. IMPRESSION: The nerve conduction studies and EMG of the bilateral upper and lower extremities were all within normal limits. This would likely rule out PATIENT'S NAME: KATELIN GRIGSBY [facility] AGE: 61 Y [address] ROOM: [facility] [place] [address] LOCATION: [facility] ADMIT DATE: 12/18/2016 Neurodiagnostics DISCHARGE DATE: FAMILY PHYSICIAN: RANDAL CASTILLO MD ATTENDING PHYSICIAN: ELA BUENROSTRO the diagnosis of a polyneuropathy and this would also not be consistent with a motor neuron disease such as amyotrophic lateral sclerosis. 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 The patient is here in the hospital but has plans to be discharged within the next 24 hours. Medications started this week with the patient include baclofen for spasticity. MD DILLAN VANEGAS/yakelin /[id number] dtt: 01/17/17 1542 ASHA JASON R. dtd: 12/19/16 1717
--- NOTE | ~2016-12-18 | HP ---
PATIENT'S NAME: KATELIN GRIGSBY [facility] AGE: 61 Y [address] ROOM: [place] [address] [place] [facility] [place] DATE: 12/18/2016 History & Physical DISCHARGE DATE: FAMILY PHYSICIAN: RANDAL CASTILLO MD ATTENDING PHYSICIAN: ELA BUENROSTRO DATE OF SERVICE: CHIEF COMPLAINT: Fall. HISTORY OF PRESENT ILLNESS: The patient is a 61-year-old gentleman with past medical history of PLS, hypertension, and hyperlipidemia, who presents here with multiple falls. According to and the patient, the patient initially was experiencing multiple falls in the house. The patient was recently admitted to our hospital and has had multiple workup for fall and dementia. He was seen by Dr. Tobar and was diagnosed with PLS. The patient was recently seen by Dr. Tobar and started on baclofen for his PLS. However, the patient continued to have some fall, and is having difficulty time caring for him at home. The patient called EMS today as he thought he has blood in his chest. EMS was called without 's notification. On initial evaluation, the patient reported of some pleuritic left lower chest pain, which resolved by the time the patient came to the emergency department. The patient was admitted to our hospital because family is not able to take care for the patient due to his multiple falls and possible dementia, and the patient lives with his , and has had to work and reports that she is not able to take care of him. The patient currently denies any chest pain, shortness of breath, fever, abdominal pain, nausea, or vomiting. MEDICAL HISTORY: Hypertension, BPH, and PLS. SURGICAL HISTORY: Cholecystectomy and hernia repair. FAMILY HISTORY: Mother had multiple heart disease. Dad had history of prostate cancer. SOCIAL HISTORY: Denies smoking, drinking. The patient used to work as a point of care technician. The patient used to work until September 2016, stopped working due to his PLS. MEDICATIONS: PATIENT'S NAME: KATELIN GRIGSBY [facility] AGE: 61 Y [address] ROOM: [place] [address] [place]: [facility] [place] DATE: 12/18/2016 History & Physical DISCHARGE DATE: FAMILY PHYSICIAN: RANDAL CASTILLO MD ATTENDING PHYSICIAN: ELA BUENROSTRO Currently being reconciled. REVIEW OF SYSTEMS: All systems have been reviewed and are negative except for what I mentioned in the HPI. PHYSICAL EXAMINATION: VITAL SIGNS: Temperature 98.2, pulse of 56, blood pressure 145/73, respiratory rate 14. GENERAL APPEARANCE: The patient is alert and awake, lying on bed. HEAD: Normocephalic, atraumatic. EYES: Extraocular muscle intact. NOSE: No nasal discharge. EARS: No ear discharge. CHEST: Clear to auscultation bilaterally. HEART: Regular rate and rhythm. No murmur, rubs, or gallops. ABDOMEN: Soft, nontender, and nondistended. Bowel sounds present. SKIN: Warm to touch. MUSCULOSKELETAL: Range of motion intact. No obvious joint effusion. RESIDENCE SUPERVISOR: The patient is alert and oriented x3. Motor and sensory grossly intact. The patient noted to have some upper extremity bilateral spasticity. The patient has a flat affect. The patient has positive retropulsion pull. The patient has akinesia while walking. The patient also has hyperreflexia of ankle and knee bilaterally. LABORATORY DATA: Troponin x2 negative. CPK within normal limits. White blood cell count of 6.9, hemoglobin 13.7, platelet of 245. BUN of 12, creatinine of 1.3, sodium is 143, potassium 3.7, INR 0.98. ASSESSMENT AND PLAN: 1. Progressive lateral sclerosis. The patient is presenting with worsening of progressive lateral sclerosis. The patient was diagnosed with progressive lateral sclerosis by Dr. Tobar. Currently, on baclofen with some improvement; however, the patient continued to have multiple falls. Family not able to take care for the patient at home. We will admit the patient, continue with PT, OT, and baclofen therapy. Consult social insurance adviser for placement. We will also acquire 4 limb EMG to rule out amyotrophic lateral sclerosis. Discussion was also made with Dr. Tobar with possibility of the patient as having Parkinson disease. However, deemed to be unlikely due to its presentation, which is progressive and symmetrical. Currently, we will follow the patient clinically. We will rule out amyotrophic lateral sclerosis with EMG. 2. Hypertension. Continue medication. Stable. 3. Multiple falls. See problem #1. PATIENT'S NAME: KATELIN GRIGSBY [facility] AGE: 61 Y [address] ROOM: [facility] [place], [place] [address] LOCATION: [facility] [place] DATE: 12/18/2016 History & Physical DISCHARGE DATE: FAMILY PHYSICIAN: RANDAL CASTILLO MD ATTENDING PHYSICIAN: ELA BUENROSTRO 4. Chest pain, pleuritic in nature. EKG and troponin unremarkable. Chest pain resolved. The patient has had recent coronary angiogram in March 2016, which showed nonobstructive coronary artery disease. 5. Hyperlipidemia. Continue Lipitor. 6. BPH. Continue finasteride. Greater than 40 minutes were spent on the patient care. Greater than 50% was spent with direct patient care and discussion with Dr. Tobar. All the patient's and family questions were answered with satisfaction. Code status discussed on admission. Code status, full code. MD EVITA PACHECO/yakelin /[id number] D: [id number] T: [id number] HISTORY & PHYSICAL
--- NOTE | ~2016-12-18 | CON ---
PATIENT'S NAME: KATELIN GRIGSBY [facility] AGE: 61 Y [address] ROOM: [address] [place], [place] [address] [place] [facility] [place] DATE: 12/18/2016 Consultation DISCHARGE DATE: FAMILY PHYSICIAN: RANDAL CASTILLO MD ATTENDING PHYSICIAN: ELA BUENROSTRO I am seeing Mr. Grigsby in neurologic consultation as he is admitted on 12/18/2016. He recently had admission to the hospital approximately 2 weeks prior to coming back to this hospital and was seen by Saadia Dickens from Neurology Service. A 61-year-old male patient who works here in [employer] services at our hospital. According to his , he has had somewhat of a subacute change in his neurologic status including difficulty with walking, slowing down of generalized motor skills, even having repeated falls. He was taken to our office about one month prior to his November admission. At that time, he was considered to have some issues with his mentation. In addition, his was saying that he was acutely having delusional thoughts and thoughts of paranoia, even was having hallucinations. It was thought perhaps this was the beginning of a dementing illness and in the setting of the patient having signs of extrapyramidal difficulties such as increased tone in the limbs and bradykinesia, that he actually had a Parkinson's type presentation. Certain Parkinson's presentations can be seen with dementias in Lewy body disease. The patient was thus started on the dementia medication, donepezil 10 mg daily, which may have helped him with his symptoms associated with some mild events of hallucinations. Featurely this has some Lewy body disease process. It did not seem to progress over the course of the next 2 months. In fact, after seeing the patient in the office, his mentation was quite good. I checked his memory and his cognitive functioning in general. Though he had slow speech and somewhat less spontaneity, I had to change the diagnosis somewhat in that I thought that he was of much more deficit in a conversational manner. Actually, the neurologic focus turned more from change in his mental status to issues with his physical health in general. It was noted that his gait was becoming extremely slow. He was noted to have increased tone in his bilateral lower extremities, more than his arms but some increased tone was noted in the bilateral upper extremities. On a prior visit, he also was noted to have increased reflexes in his patellas and ankle jerks even showed 3-beat clonus. I no longer see the 3-beat clonus, but his brisk reflexes in the setting of increased tone were quite interesting. These pointed to perhaps some progressive degenerative process of myelin in the central nervous system to findings of increased tone with hyperreflexia as well as the patient complaining about difficulty with walking, was suggestive of upper motor neuron dysfunction. It is truly difficult to say if he has spasticity of the legs, which is a rate-dependent type process or if this tone increases more consistent with extrapyramidal dysfunction that would be seen more in a Parkinson's type of presentation. I put my dime on this being an upper motor PATIENT'S NAME: KATELIN GRIGSBY [facility] AGE: 61 Y [address] 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 Primary lateral sclerosis is an idiopathic process, which is progressive. It does have features of spasticity of the legs with hyperreflexia and difficulty with gait as well mostly due to the level of spasticity. Since the patient does have some mixed features of parkinsonism with bradykinesia, difficulty with his gait in general with some propulsion and retropulsion, the possibility of idiopathic Parkinson's in the background should not be thrown out of the mix. What was a britton to the features of his presentation was the very rapid increase in the level of his tone in his legs so much out of proportion then one would see in Parkinson's presentation. Furthermore, Parkinson disease almost always presents in an asymmetric manner or perhaps in a symmetric manner often going back for a period of months to even at least a year. According to the , this history was progressive over the course of this year and was basically more of asymmetric process of difficulty with walking far out of proportion to bradykinesia. The patient was taken into our hospital on this admission due to the fact that he really was unable to take care of himself at home and was unstable in walking and the patient's decided to take him in for health and social care teacher issues primarily but also to consider nerve conduction EMG to get a better sense of his neurologic status. So, history of hyperlipidemia, history of hypertension, frequent falls at home, a questionable history of some subacute to fairly rapid change in his thought processes are thought to be associated with dementia, though this is somewhat speculative as he answers questions appropriately and does have good short-term memory intact. His physical illness may have some depressive features on top of this, which may be confusing some of the picture here. Nonetheless, the patient was started on the dementia medication of Aricept, which may have even benefited the patient since its commencement. The denies that he is currently having any hallucinations or acting out or sudden periods of unexplained delirium. PAST SURGICAL HISTORY: Cholecystectomy and hernia repair. FAMILY HISTORY: Prostate cancer in his father. Mother had heart disease. SOCIAL HISTORY: He had to stop his work here at our hospital in [employer] since around September of this year. He does not drink or smoke cigarettes. REVIEW OF SYSTEMS: Progressive spasticity in the legs continue though somewhat improved with the use of baclofen started in our Neurology Clinic. He has some better ability to walk without the scissoring gait. He is noted to have signs of upper motor neuron features including hyperreflexia of the lower extremities in particular PATIENT'S NAME: KATELIN GRIGSBY [facility] AGE: 61 Y [address] ROOM: [address] [address] LOCATION: [facility] [place]MIT DATE: 12/18/2016 Consultation DISCHARGE DATE: FAMILY PHYSICIAN: RANDAL CASTILLO MD ATTENDING PHYSICIAN: ELA BUENROSTRO but also in the upper extremities to a lesser extent. He has a slow answer to questions in general, somewhat of a subacute course of change in his speech spontaneity. Rest of 10-point review of systems currently is within normal limits. PHYSICAL EXAMINATION: VITAL SIGNS: Showed a pulse of 62 and regular, respirations 14, blood pressure 138/72, and temperature is 98. GENERAL: The patient has a flat affect. He does not smile. He tends to look down. He does have a fairly good ability to raise his eyes and look side to side. He denies any double vision. Cranial nerves are grossly intact. He does have full ability to puff out the cheeks. His tongue is strong in opposition to his cheek. NECK: Supple on flexion and extension. NEUROLOGIC: He has normal sensation of his face and normal symmetry of the face. Power of the bilateral upper and lower extremities is normal at 5/5. He does not demonstrate any give-way weakness. There is tone that is increased in the arms and subtle cogwheel effect of the arms was noted without any obvious tremor in the background. Lower extremities quite profound than its increased tone though improved with baclofen from my opinion with the patient starting this approximately a week ago. At the bilateral patellar reflexes, there is a brisk and ankle jerk reflexes are +2 in the setting of the brisk patellars. Plantar reflexes are downgoing. I did not appreciate clonus presently. On the patient's stance, he demonstrates retropulsion on simple pulling. When the patient was simply pulled back, he could not attain his gait without falling back. His gait is slow and stooped and parkinsonian like. IMPRESSION: The diagnosis of progressive lateral sclerosis is a determination based upon the patient's symmetrical presentation over the course of a few months this year of spasticity of the legs and arms with hyperreflexia. This would not necessarily be a presentation of Parkinson disease as it is often slower in its presentation and usually presents asymmetrically. He does have features of parkinsonism with some mild bradykinesia even some retropulsion and this picture is somewhat mixed and a bit confusing to take a firm diagnosis of one or the other. Nonetheless, we tend to think that this is a degenerative process of his myelination as I am not familiar with presentations of Parkinson's being as he presented so rapidly progressive with a symmetric gait impairment and hyperreflexia with dramatic tone increase. The tone increase is hard to say related to rigidity versus spasticity. Some of the features are difficult to delve out on the physical exam. His response to the medication baclofen very quickly is suggestive that this is an upper motor neuron process as opposed to an extrapyramidal degenerative process. We did a four limb EMG nerve conduction study and it is expected the nerve conduction studies were all within normal limits. The EMG was basically done to rule out any PATIENT'S NAME: KATELIN GRIGSBY [facility] AGE: 61 Y [address] ROOM: [place] [address] LOCATION: [facility] ADMIT DATE: 12/18/2016 Consultation DISCHARGE DATE: FAMILY PHYSICIAN: RANDAL CASTILLO MD ATTENDING PHYSICIAN: ELA BUENROSTRO A possibility of an overlap with amyotrophic lateral sclerosis. There certainly was not any evidence to support ALS as there was no evidence of any spontaneous fibrillation potentials or positive sharp waves. This would be seen in persons with lower motor neuron signs mixed with upper motor neuron signs. Motor unit action potentials were normal with normal sizes and recruitment pattern. This would be a consistent pattern seen in PLS since this is not involving peripheral nerves but does involve degeneration of central myelination. All told MRIs and cervical spine MRIs do not usually show findings of degeneration to the cortical spinal tracts and it is always difficult to back up this diagnosis with imaging. Essentially, the treatment is supportive with physical therapy over the course of the lifetime as well as treatment with baclofen to bring down spasticity. I agree with increase by Dr. Villareal from 10 mg 3 times a day to 15 mg 3 times a day to better see if gait would be improved with less tone. The patient will continue to work with physical therapy and final placement based upon the patient's social service needs are currently being worked up here in the hospital. MD DILLAN VANEGAS/yahirl /[id number] d: 12/24/16 0244 t: 01/17/17 1544, CONSULTATION REPORT
--- NOTE | ~2016-12-18 | ESTC ---
Cardiac Perfusion Imaging Demographics Patient Name CALISTA Ferrari Gender Male Patient Number [id number] Race Visit Number [id number] Ethnicity Corporate ID Room Number G3219 Accession Number [id number] Height 67 inches Date of 1955 Weight 166 pounds Interpreting LUCILLE Herrera [place] Date of study 12/24/2016 Physician Rosibel Dias MD Supervising /APOLLO VELASCO Technologist Kimberly Zuleta Ordering Physician Jennifer Zuleta tool technician Stress ECG Reading Jennifer Nurse Katie Meek Physician Merlyn RN Medications Reviewed with Patient prior to Procedure. Procedure Admit Source:Emergency department. Procedure Type: Nuclear Stress Test:Pharmacological, Lexiscan, Cardiolite Stress Test Procedure Start time: 12/24/2016 10:10 Indications: Angina and Dizziness. Risk Factors The patient risk factors include:treated hypercholesterolemia, treated hypertension, family history of premature CAD and dyslipidemia. Conclusions Impression ECG portion of lexiscan stress test is clinically negative for ischemia by diagnostic criteria. Myocardial perfusion imaging is essentially normal. No evidence of convincing ischemia. Overall left ventricular systolic function was normal without regional wall motion abnormalities. Calculated LVEF is 60%. TID ratio is not elevated. Stress Protocols Resting ECG Normal sinus rhythm. Pre-stress physical exam: Patient assessed by Dr Rodriguez prior to testing. Predicted HR: 159 bpm ECG Findings No ECG changes suggestive of ischemia. Arrhythmias No rhythm abnormality. Symptoms No symptoms with Lexiscan infusion. Stress Interpretation Appropriate hemodynamic response to Lexiscan. No significant ST-T wave changes with Lexiscan. ECG portion is negative for ischemia by diagnostic criteria. Imaging Results Applied corrections - Motion correction applied High risk findings Summed scores - Summed stress score: 0 - Summed rest score: 0 - Summed difference score: 0 Stress ejection Ejection fraction:60 % EDV :106 ml ESV :42 ml Stroke volume :64 ml LV mass :145 gr Imaging Protocols Rest Stress Isotope:Tc99m Sestamibi IV Isotope: Tc99m Sestamibi IV Isotope dose:12.9 mCi Isotope dose:40.5 mCi Date:12/24/2016 09:06 Date:12/24/2016 10:47 Technique: SPECT Technique: Gated Supine SPECT Supine IV remains in place after procedure. Scan Time:45-60 minutes post Scan Time:45-60 minutes post injection injection Procedure Medications - Regadenoson (Lexiscan) 0.4 mg IV over 10-15 sec. I.V. 0.4 mg. Medications administered per verbal order and read back to physician prior to administration. Medical History Admission Data Admission date: 12/18/2016 Admission Time: 08:15 Hospital Status: Inpatient. Signatures dtt: KRISTEN ROYAL dtd: 12/24/16 1010 Physician Self Edit
--- NOTE | ~2016-12-18 | ER ---
PATIENT'S NAME: KATELIN GRIGSBY [facility] AGE: 61 Y [address] ROOM: [place] [address] LOCATION: [facility] [place] ADMIT DATE: 12/18/2016 ER/Outpatient Report DISCHARGE DATE: FAMILY PHYSICIAN: RANDAL CASTILLO MD ATTENDING PHYSICIAN: ELA BUENROSTRO CHIEF COMPLAINT: Chest pain and dizziness. HISTORY OF PRESENT ILLNESS: Mr. Grigsby arrives by ambulance for evaluation of chest pain and dizziness. He is accompanied by his who came separate today. EMS notes that the patient called 911 for his chest pain. 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 His other medical history is notable for coronary artery disease with a cath in March showing 20% to 30% lesion maximal. He also has a history of some psychotic features associated with his presentation per recent ER note on December 16. This is the patient's 7th ER visit for similar symptoms since the 13 of October. EMS also note that the patient was found to be awake on his own. The 2 EMS providers in addition to a police communications dispatcher entered the residence and were conversing with the patient when the patient's was woken up after an unusual amount of time. She was unaware of what was happening. She notes that she can no longer care for him at home as his cares are too demanding and she cannot sleep. She also is concerned that he is not sleeping and her Benadryl at home have not been working. PAST MEDICAL HISTORY: Documented on the record and reviewed by me. SOCIAL HISTORY: Documented on the record and reviewed by me. MEDICATIONS: Documented on the record and reviewed by me. ALLERGIES: DOCUMENTED ON THE RECORD AND REVIEWED BY ME. REVIEW OF SYSTEMS: All systems were reviewed and negative except as noted in the HPI. PHYSICAL EXAMINATION: PATIENT'S NAME: KATELIN GRIGSBY [facility] AGE: 61 Y [address] ROOM: [place] [address] LOCATION: [facility] [place] ADMIT DATE: 12/18/2016 ER/Outpatient Report DISCHARGE DATE: FAMILY PHYSICIAN: RANDAL CASTILLO MD ATTENDING PHYSICIAN: ELA BUENROSTRO VITAL SIGNS: Blood pressure 136/75, pulse 67, respiratory rate 18, temperature 97.6, and SpO2 is 98% on room air. Pain is rated at 0/10. GENERAL: An age appropriate male, recumbent on the exam table, in no apparent pain or distress. NEUROLOGIC: The patient is awake and alert. His GCS is 14. Not oriented to date exactly, thought it was the 7th when it is the 6th. He is also disoriented to time and day. He otherwise is able to follow commands, but is very slow. His speech is intelligible, but slow and purposeful. He does have some parkinsonian tremor intermittently. HEENT: Normocephalic and atraumatic. Eyes are PERRL. Oropharynx is clear. NECK: Supple. Trachea is midline. CHEST: Heart is regular rate and rhythm with no murmurs. LUNGS: Clear to auscultation bilateral with no rhonchi, wheezes, or rales. ABDOMEN: Soft, nontender, and nondistended. No rebound or guarding. BACK: Normal to inspection and palpation. No CVA tenderness. EXTREMITIES: Warm and well perfused with no edema or deformities. SKIN: Clean, dry, and intact. LABORATORY DATA AND X-RAYS: Chest x-ray unremarkable per my review. CMS unremarkable including magnesium. Cardiac markers are unremarkable. CBC with no abnormalities. INR is less than 1. EKG reveals left axis deviation. Otherwise sinus rhythm with normal intervals and axis. Normal R-wave progression. No significant changes compared to EKG from 12/16/2016. IMPRESSION: 1. Chest pain, likely chest wall pain. 2. Dizziness, resolved. 3. Parkinsonism resulting in overwhelming cares. EMERGENCY DEPARTMENT COURSE: The patient was seen and evaluated as above. I reviewed extensive notes. I discussed the case with Dr. Reyes, on-call provider for Dr. Castillo, the patient's primary care provider. I have ruled the patient out for acute coronary syndrome. Based on records and recent evaluations, I do not think this is cardiac related. No other source of chest pain at this time. His left lateral chest wall is slightly tender to palpation which may be related to a recent fall. No external signs of trauma. No rib fractures or pneumothorax on x-ray. I discussed at length the current plan of care for this patient with his , the plan is to have her grandmother come and stay with the patient tomorrow. Upon inquiry of this grandmother's functional status and the fact the patient will be left alone for 2 hours tomorrow in the morning, I do not think that is a safe situation, and thus, I have elected to admit him to the hospital for safety concerns. I have discussed the case with Dr. Buenrostro, hospitalist, and he will admit the patient. Please see his H and PATIENT'S NAME: KATELIN GRIGSBY [facility] AGE: 61 Y [address] ROOM: [place] [address] LOCATION: [facility] [place] ADMIT DATE: 12/18/2016 ER/Outpatient Report DISCHARGE DATE: FAMILY PHYSICIAN: RANDAL CASTILLO MD ATTENDING PHYSICIAN: ELA BUENROSTRO for complete details from his standpoint. All questions were answered, and the patient was admitted. MD CARMEN ROGERS/yakelin /[id number] d: 12/18/16 1240 t: 12/27/16 1001, OUTPATIENT REPORT
[~2016-12-18 05:56] MED LIST changes: -MYLANTA (MAG-AL30 ML PO; -NORCO 5-325 TA1 EACH PO
[2016-12-18 06:47] LABS: BASOPHIL # 0.1 K/uL (0.0-0.2); BASOPHIL % 0.7 %; EOSINOPHIL # 0.2 K/uL (0.0-0.5); EOSINOPHIL % 2.2 %; HEMATOCRIT 38.9 % (37.0-53.0); HEMOGLOBIN 13.7 g/dL (11.0-16.0); IMMATURE GRANULOCYTE % 0.3 %; LYMPHOCYTE # 1.7 K/uL (0.8-4.0); LYMPHOCYTE % 24.5 %; MCH 33.1 pg (27.0-34.0); MCHC 35.2 gm/dL (32.0-36.5); MONOCYTE # 0.8 K/uL (0.0-1.0); MONOCYTE % 11.2 %; NEUTROPHIL # (ANC) 4.2 K/uL (1.4-9.0); NEUTROPHIL % 61.1 %; NRBC % 0 /100WBC (0-0.00); PLATELET COUNT 245 K/uL (150-450); RBC 4.14 M/uL (3.50-5.50); RDW-CV 12.4 % (11.9-14.6); WBC 6.9 K/uL (4.0-11.0)
[2016-12-18 06:57] LABS: INR - (THERAPEUTIC) 0.98 (0.92-1.07); PROTIME 10.3 SECONDS (9.8-11.4); PTT 26 SECONDS (25-32)
[2016-12-18 07:06] LABS: ALBUMIN 3.5 gm/dL (3.5-5.0); ALK PHOS 96 IU/L (33-138); ALT 27 IU/L (12-78); ANION GAP 10.7 (10.0-19.0); AST 14 IU/L (10-40); BLOOD UREA NITROGEN 12 mg/dL (6-24); CALCIUM 8.6 mg/dL (8.5-10.5); CHLORIDE 109 mMol/L (96-110); CO2 27 mMol/L (22-32); CPK 72 IU/L (35-332); CREATININE 1.3 mg/dL (0.6-1.3); MAGNESIUM 2.4 mg/dL (1.8-2.6); POTASSIUM 3.7 mMol/L (3.7-5.1); SODIUM 143 mMol/L (135-145); TOTAL BILIRUBIN 0.5 mg/dL (0.0-1.5); TOTAL PROTEIN 6.4 g/dL (6.0-8.4)
[2016-12-18] MEDS ORDERED: MYLANTA (MAG-AL30 ML PO (11:58)
[2016-12-18] MEDS ORDERED: BAYER BACK & B1 EACH PO (12:03)
--- NOTE | 2016-12-18 17:44 | NUR ---
Oriented x3. Up w/assist only. Fell on Monday; frequent falls. Regular diet. VSS, afebrile, on RA. Denies N/V/D, pain. Says his left chest feels "bloody"; no change from throughout the past 24hrs. Cardiac tests negative. Lungs clear. Waiting for placement. Dr Tobar saw him today.
--- NOTE | 2016-12-19 05:05 | NUR ---
Significant Event: Pt oriented, however forgetful and restless and very impulsive. Occasionally incontinent of urine. Is a 1 assist with walker and is unsteady on feet-high fall risk. Obtained order for Trazadone x 1 to help with sleep inwhich pt did not sleep. VSS. Looking for placement. Follow up: Bed alarm on at all times.
--- NOTE | 2016-12-19 08:20 | NUR ---
Spoke to Elizabeth with [employer] - disability application was completed Monday and she hopes to get the Medicaid application done today. 1000 Called to patients room. Adelaida with [facility] in [place] here to see patient. Answered her questions and gave her paperwork. [id number] present. [address] [facility] here in [place]. They were suppose to go see them today at 1500. I asked if they could come and assess today. 1025 Faxed updates to [facility]. 1135 Carla with [facility] called about a doctor question, will need a local doctor. She will talk to their medical assembly and then start the pre-cert. 1415 Natali Flores with [facility] called. Updated her. 1430 Spoke to patients , she is going to head over to [facility] here in a few. I asked that she call and leave me a message if the plan is there since I won't see her until 1500 tomorrow. Added my number to the marker board.
[2016-12-19] MEDS ORDERED: ARICEPT10 MG PO (15:32)
[2016-12-19] MEDS ORDERED: NORCO 5-325 TA1 EACH PO (15:34)
--- NOTE | 2016-12-19 17:30 | NUR ---
Significant Event: Alert and oriented X 3. Can by impatient and impulsive. This afternoon has been using call light and not near as impulsive. Room air. SBP 140's. HR 80's. EMG conduction study being done this afternoon. Still looking for placement. 1 assist gait belt and walker. High fall risk. Family at bedside. Pleasant and cooperative with cares. Follow up:
--- NOTE | 2016-12-20 03:17 | NUR ---
Significant Event: Patient alert and oriented X4. Up with one assist, walker and gait belt. Voids frequently. Incont X1 void. Vitals stable and on room air. Fell on 12/14. IV to R) wrist is saline locked. Looking for placement. Progressively worsening gait over last several months. Very impulsive, will try to get out of bed. Bed alarm on at all times. EMG conduction study done. Tylenol and x1 benadryl given at 0013. Some relief noted Follow up: Bed alarm
--- NOTE | 2016-12-20 08:00 | NUR ---
Patrica left a message last evening that they were hoping for [email or web address] but was waiting to hear back from them. 1140 Called Lisa at [email or web address]. They can't accept due to his night time needs and that is not a good time with their night staffing ratio. 1150 Jacqueline, patients [id number] called to tell me about [email or web address]. She stated Katie from [facility] called with some questions they can answer. 1300 Had patients sign the HIPPA form for PASRR screening, faxed requested information. 1515 Called Katie at [facility] #[phone]. She just needed to know if [facility] would be following? I said no, their hotline was suppose to be seeing if their medical record librarians teacher can take. 1355 Suzanne from [facility] here to assess patient. 1500 Checked PASRR and it was triggered for a Level II
--- NOTE | 2016-12-20 15:29 | NUR ---
Significant Event:Is A/O most of the time.Has SL Rt.wrist.Has been amb in halls with walker& 1 assist.Has had no c/o pain.Waiting for placement.Working with PT/OT. Follow up:
--- NOTE | 2016-12-21 04:27 | NUR ---
Significant Event: Patient alert and oriented X3. Forgetful and forgets limitations. Will get out of bed without calling. 5mg ambien ordered QHS for insomnia, given around 2029 and patient slept from 2114 until around 399. Stated he felt better after sleeping. stated he has not slept for several nights. Usually very restless. Walked in halls X1. Walker and gait belt. Incont X1, but voided in bathroom x3. Looking for placement. Denies pain. Vitals stable and on room air. Follow up: Monitor bed alarm
--- NOTE | 2016-12-21 10:45 | NUR ---
Let patients nurse Yuly know that Deejay Willson would be here around 1100 to talk about patient with her. 1110 Assisted answering Deejay's questions along with Yuly. Deejay then meet with Patrica Evans's grandma. Deejay's number is #[phone] - assessing for Level II PASRR.
--- NOTE | 2016-12-21 16:46 | NUR ---
Significant Event:Is A/O but forgetful at times.SL Rt.wrist.Is amb with walker & standby assist.No c/o pain.Working with OT/PT.Looking for placement. Follow up:
--- NOTE | 2016-12-22 04:18 | NUR ---
Pt. alert but forgetful. Impulsive. Bed alarm on zone 2 at all times. Pt. pulled out IV. Restart IV in R) hand - saline locked. 1 assist with walker. Incontinent multiple times last night. Slept for a few afters after ambien was given. Has been up since 0200. VS x1 per shift. No c/o pain.
--- NOTE | 2016-12-22 15:29 | NUR ---
Significant Event: PATIENT ALERT/ORIENTED, FORGETFUL. UP TO CHAIR WITH SBA, CHAIR ALARM ON AT ALL TIMES. AMBULATED IN [place] SEVERAL TIMES THIS SHIFT, WITH USE OF WALKER/GAIT BELT, SBA. DENIED PAIN WHEN ASKED. HAD SPEECH THERAPY EVALUATION, TODAY. BED ALARM ON WHEN IN BED. Follow up:
--- NOTE | 2016-12-22 15:40 | NUR ---
Left voicemail x 2 for Rita at [facility] (she called me back, playing phone tag) to call and let me know what they are thinking about accepting patient to their facility ([facility]) for a skilled stay. Pt was a positive ID screen and Level II Eval completed yesterday by Deejay Parson, this afternoon just now I received a fax from [facility] [employer] that they reviewed Deejay's report and approved pt for 120 days in SNF before reeval by them needed. Left Katie that information. Talked with patient and mother in law this morning, at that time didn't know anything more but let them know we are still working toward SNF at [facility], just waiting to hear acceptance from them and also approval from [facility]. Will continue to work toward placement.
--- NOTE | 2016-12-23 03:05 | NUR ---
Significant Event: Patient alert and oriented X3. FOrgetul and impulsive. Bed alarm at all times. Vitals stable and once a shift. Abmien and tylenol given at bedtime and sleeping well so far. Voiding well. Fell on 12/14. Speech therapy saw today. Walked x2 this shift. Waiting for placement, looking at [facility]. Follow up: bed alarm
--- NOTE | 2016-12-23 12:24 | NUR ---
Carla at [facility] ([facility] in [place]) called and said [facility] will accept pt and can accept today if they get approval from [facility] for skilled stay. Faxed updated therapy notes to her as well as ID screen. She will call me as soon as they hear back from [facility]. I let Kristin Valentine APRN for hospitalist know. Darien sleeping so I will wait to wake him up when I hear from [facility] they have approval from [facility]. Pt Patrica still at work and not off until 1430 so I called Patrica's mom Jacqueline at [phone] and let her know, will let her or Patrica know when I know more.
[2016-12-23 12:48] LABS: CPK 77 IU/L (35-332)
--- NOTE | 2016-12-23 12:54 | NUR ---
PT SCREENED D/T LOS. EST NEEDS: [id number] KCALS, 90 GM PROTEIN, 1 ML/KCAL FLUIDS. BMI IN SLIGHTLY OVERWEIGHT RANGE AND INTAKE 75-100%. NO NUTRITION-RELATED DIAGNOSIS IDENTIFIED. WILL ASSIST NEEDED.
--- NOTE | 2016-12-23 16:41 | NUR ---
Significant event: Today patient has been slow in ambulation and needs encouragement to take bigger steps. Was incontinent of large amount of urine this am when woke up. Has been incontinent of urine 3 times today. Taken to BR q 2 hours. Had large BM. At 1155 c/o tightness in chest vs 134/77-83-16 98%. Debby QUEENsmelter charger nurse notified and Dimitri Funes APRN notified and new orders received. Patient reports has had chest pain in the past. Patient returned to bed. EKG and labs done. Patient went to sleep for about 30 minutes and reports his chest pain was gone. Tylenol given today for lower back pain. Has been alert and oriented, forgetful at times and repeats same questions several times. Patient is now on telemetry. Follow-up: NPO after midnight for stress test in am.
[2016-12-23 18:22] LABS: CPK 80 IU/L (35-332)
[2016-12-24 00:43] LABS: CPK 68 IU/L (35-332)
--- NOTE | 2016-12-24 04:45 | NUR ---
Pt. sedated at beginning of shift. VSS. RA. Has become more alert but still lethargic. Did not give PRN ambien. Has not been very impulsive this shift. 2 assist with walker - very slow and needs lots of encouragement. Incontinent multiple times. Will use urinal at times. No chest pain reported for me this shift. Tylenol given for low back pain. Pt. on telemetry with a couple of calls of low and high heart rate. Stress test scheduled for this AM - has been NPO since [place]. will be here early in AM.
[2016-12-24 06:22] LABS: CPK 64 IU/L (35-332)
--- NOTE | 2016-12-24 18:00 | NUR ---
Significant Event: Patient down for lexiscan stress test this a.m. from 1720-0924. Stress test results negative and labs look good. Denies pain. at bedside. Patient has been continent throughout the shift. Ambulated in halls and some more alert today. Dr. Villareal in to see patient and did decrease baclofen from 15 mg to 10 mg TID. Patient had been increased to 15 mg on night. Ate well for meals. Vital signs stable. Follow up: Continue to monitor.
--- NOTE | 2016-12-25 05:18 | NUR ---
Significant Event: PATIENT ALERT BUT VERY DROWSY THIS SHIFT. NEEDS LOTS OF CUES, ESPECIALLY DURING AMBULATION. TAKES MEDS WHOLE WITH WATER, DOES TEND TO CHEW MEDS ONCE GIVEN THEN SWALLOWS. DID NOT GIVE AMBIEN THIS SHIFT DUE TO PATIENT'S DROWSINESS-HAS SLEPT WELL TROUGHOUT NIGHT WITHOUT IT. DENIES PAIN WHEN ASKED. VSS AND AFEBRILE. UP WITH 1-2 ASSIST, GAIT BELT AND WALKER. HAS BEEN KNOWN TO USE URINAL BUT UNABLE THIS SHIFT; HAS BEEN INCONTINENT. ON TELE AND NO CALLS. IV TO R) WRIST. PLAN: [facility] IN [facility] ON MONDAY. Follow up:
--- NOTE | 2016-12-25 18:30 | NUR ---
Significant Event: Patient up in chair throughout the day. Did ambulate in the [place] several times with TRIMMER OPERATOR THREE KNIFE and with his . Patient has been more awake and talkative today. Denies pain. Spoke with patient's regarding transfer to [place] tomorrow. She said she had heard 2 different things regarding transfer. Her first choice would be to have [place] facility come get patient and transport him and when she gets off work she will go down there and get paperwork settled. If [place] is unable to come get him, patient's said that she could transport him to [place] after she gets off work which would be some time after 1430. I told her I would leave a note for care management so they would know her thoughts. Patrica is planning on taking most of belongings home tonight and will take them down to [place] after work. Patient has done well today. No complaints of chest pain. Patient has had a little dizziness at times but is most likely related to residual from baclofen increase. Baclofen is back down to 10 mg three times daily. Follow up: Continue to monitor. Transfer to [place] on Monday.
--- NOTE | 2016-12-26 05:14 | NUR ---
Significant Event: PATIENT IS ORIENTED X2. SLOW SPEECH. ALARMS ON AT ALL TIMES. PATIENT DID CALL APPROPRIATELY THOUGH. PATIENT RECEIVED AMBIEN AT HS ALONG WITH TYLENOL. QSHIFT VS/ASSESSMENTS. UP X1 WITH WALKER AND GAIT BELT. BED ALARMS AT ALL TIMES. INCONTINENT OF URINE THROUGHOUT NIGHT. FLAT AFFECT. HX DEMENTIA AND ANXIETY. PATIENT'S SPOUSE HAS MANY QUESTIONS REGARDING DISCHARGE TO NURSING FACILITY IN [place] TODAY. Follow up: GOING TO [facility]. SPOUSE WOULD PREFER FOR [facility] TO TRANSPORT BUT IF THEY CAN'T, SHE WILL TAKE HIM FOLLOWING HER SHIFT TODAY. (WORKS IN [employer]).
--- NOTE | 2016-12-26 09:00 | NUR ---
Patients [id number], Jacqueline called about discharge plans today. Will have to call her back #[phone]. 9238 Spoke with Melva Goss, good to go today. Called Carla with [facility]. Faxed her PT/OT notes like she requested. 1100 Carla called and they will be here at 1230. Updated charge nurse Debby, patient's nurse Melva Santoyo and called Jacqueline back. 1205 Carla left a message that they were running an hour late. 1230 Faxed orders and told Debby or time change.
--- NOTE | 2016-12-26 11:04 | NUR ---
Alert & oriented, conversational but forgetful. Slow to respond. Needs many verbal cues to follow commands. 1 assist with gaitbelt and walker. VSS, afebrile, room air. Incontinent at times. Alerms on at all times due to history of frequent falls, impulsive at times. Calm & cooperative with cares. Plans to transfer to longterm today at 12:30, facility to transport.
== END 2016-12-26 14:25 | DRG 57 ==
LOC: GMED 05:56 → GMSU 08:15
PROVIDERS: Emergency Medicine; Internal Medicine; Nurse Practitioner Family; ADMIT Internal Medicine
DX: G12.9 Spinal muscular atrophy, unspecified (principal); F03.90 Unspecified dementia, unspecified severity, without behavioral disturbance, psychotic disturbance, mood disturbance, and anxiety; F31.9 Bipolar disorder, unspecified; F45.9 Somatoform disorder, unspecified; E78.5 Hyperlipidemia, unspecified; I10 Essential (primary) hypertension; I25.10 Atherosclerotic heart disease of native coronary artery without angina pectoris; N40.0 Benign prostatic hyperplasia without lower urinary tract symptoms; W19.XXXA Unspecified fall, initial encounter
CPT/HCPCS: A9500; J1650; J2001; J2785

== ENCOUNTER → 2016-12-18 | Outpatient (CLI) | payer OTHER, MEDICAID ==
[~2016-12-18] MED LIST changes: +MYLANTA (MAG-AL30 ML PO; +NORCO 5-325 TA1 EACH PO
== END | disposition disaster alternative care site (69) ==
LOC: GAMB 05:37
DX: R07.9 Chest pain, unspecified (principal); I10 Essential (primary) hypertension; E78.5 Hyperlipidemia, unspecified; M54.9 Dorsalgia, unspecified; F03.90 Unspecified dementia, unspecified severity, without behavioral disturbance, psychotic disturbance, mood disturbance, and anxiety; Z79.899 Other long term (current) drug therapy
CPT/HCPCS: A0425; A0427